=== PATIENT | female | born 1990 | race Caucasian/White ===

== ENCOUNTER 2017-07-27 16:04 | Emergency (ER) | payer MEDICAID, SELFPAY ==
[2017-07-27 16:06] VITALS: BP 134/88; PULSE 71; RESP 16; TEMP 35.9; O2SAT 100; BMI 29.5
--- NOTE | 2017-07-27 16:22 | US_ITS ---
STUDY: ABDOMINAL ULTRASOUND - RIGHT UPPER QUADRANT REASON FOR VISIT: Female, 27 years old. RUQ PAIN, nausea and vomiting TECHNIQUE: Ultrasound evaluation of the right upper quadrant was performed with real-time and static aguilar-scale imaging. TECHNICAL QUALITY: Adequate. COMPARISON: None. FINDINGS: Liver: The liver measures 14.1 cm. There is normal echogenicity of the liver. The bile ducts are within normal limits. There is hepatic color flow. The direction of portal flow is hepatopetal. There is no demonstrated mass lesion. Gallbladder: Normal distended gallbladder. The gallbladder wall measures 2 mm. There is a negative sonographic Eagle's sign. There is no pericholecystic fluid. There are no gallstones. Common Bile Duct (C.B.D.): The common bile duct measures 3.5 mm. Pancreas: Normal size of the head, body and tail of the pancreas. There is normal echogenicity of the pancreas. There is no demonstrated pancreatic mass or cyst. Right Kidney: Normal size of the right kidney. The right kidney measures 10 x 4.7 x 4 cm. Normal renal cortex. The right cortex measures 1.2 cm. There is no demonstrated renal mass or cyst. There is no right hydronephrosis. US/Gallbladder IMPRESSION: Normal right upper quadrant ultrasound examination. No evidence of cholelithiasis or biliary obstruction. Electronically Signed: Mague Pardo MD at 18:27 EDT Tel , Service support ,
[2017-07-27 16:40] LABS: Absolute Lymphocyte Count 1.07 X10^3/ul (0.83-4.51); Absolute Neutrophil Count 14.1 X10^3/uL (2.0-7.7); Basophil# 0.02 X10^3/uL; Basophil% 0.1 % (0-1); Eosinophil# 0.01 X10^3/uL; Eosinophils% 0.1 % (0-5); Hematocrit 40.7 % (37-47); Hemoglobin 13.5 g/dl (12.0-15.0); Lymphocyte # 1.07 X10^3/ul (4.0); Lymphocyte % 6.8 % (19-41); Mean Corp Hgb Conc 33.2 g/gl (32-36); Mean Corpuscular Volume 87.3 fL (81-99); Mean Platelet Vol. 10.3 fl (6.2-12.0); Monocyte# 0.59 X10^3/uL; Monocyte% 3.7 % (0-10); Neutrophil # 14.05 X10^3/uL (2.7-7.7); Neutrophil % 89.1 % (47-70); Platelet Count 243 K/mm3 (150-450); RBC Distribution Width CV 12.6 % (11.6-14.6); RBC Distribution Width SD 40.4 fl (35.1-43.9); Red Blood Count 4.66 M/mm3 (4.2-5.4); White Blood Count 15.8 K/mm3 (4.4-11.0)
[2017-07-27 16:41] LABS: POSITIVE COUNT NO; POSITIVE DIFFERENTIAL NO; POSITIVE MORPHOLOGY NO
[2017-07-27] MEDS: Morphine 4 MG/ML Syringe IV (16:49)
[2017-07-27] MEDS: 0.9% Normal Saline 1,000 ML 1000 ML IV (16:49)
[2017-07-27] MEDS: Ondansetron 4 MG/2 ML Vial IV (16:51)
[2017-07-27 17:01] LABS: AST(SGOT) 15 U/L (15-37); Alanine Aminotransfer ALT/SGPT 19 U/L (13-56); Albumin, Serum 3.7 g/dL (3.2-5.0); Alkaline Phosphatase 71 U/L (45-117); Anion Gap 10 (5-15); BUN 12 mg/dL (7-18); BUN/Creat Ratio 18.9 RATIO (10-20); Calcium,Total 8.7 mg/dL (8.5-10.1); Chloride 105 mmol/L (98-107); Creatinine, Serum 0.64 mg/dL (0.55-1.02); EST Glomerular Filtration Rate 120 mL/min (>60); Est Glom Filt Rate - Afr Amer 145 mL/min (>60); Estimated Creatinine Clearance 110.19 ml/min; Globulin 3.8 g/dL (2.2-4.2); Glucose 119 mg/dL (74-106); Lipase 104 U/L (73-393); Protein, Total 7.5 g/dL (6.4-8.2); Sodium Level 139 mmol/L (136-145)
[2017-07-27 17:04] LABS: Pregnancy, Serum, hCG Quali. NEGATIVE Negative (0-9 Nonpreg)
--- NOTE | 2017-07-27 19:01 | ED.VISSUMM ---
- ER Visit Summary Date of Service: 07/27/17 Chief Complaint: Abdominal pain nausea and vomiting History of Present Illness: The patient is a 27 F presenting for evaluation secondary to abdominal pain nausea vomiting. Patient states she had a sudden onset of epigastric abdominal pain today at 1330. It was associated with multiple episodes of nonbloody nonbilious emesis. She denies any presence of diarrhea or fevers. Patient states that she went to an outside facility emergency department, and was told that they were on bypass so she came to this emergency department. Patient denies any history of abdominal surgeries. Review of systems otherwise negative. Physical Examination: Vital signs within normal limits. Uncomfortable female not in physiologic distress. No conjunctival pallor or scleral icterus. Dry mucous membranes. Neck was supple. Heart was regular rate and rhythm. Lungs sounds clear to auscultation. Abdomen was tender in the right upper quadrant and epigastrium without guarding rebound or Eagle sign. Remainder the physical otherwise unremarkable. Test Results: CBC shows leukocytosis of 15.8, likely reactive to the patient's emesis, chemistry unremarkable, liver panel and lipase unremarkable, hCG negative. Right upper quadrant ultrasound negative. Emergency Department Course and Treatment: Patient presented for evaluation secondary nausea vomiting and abdominal pain. Likely diagnosis is abdominal pain secondary to the patient's forcible emesis, there is no evidence of Cierra-Newsome or Boerhaave syndrome. She did have some localization in her right upper quadrant there is at least some concern for the possibility of pancreatitis versus gallbladder disease. Laboratory workup was indicative only of the patient's elevated white blood cell count likely reactive to her vomiting. She was given a liter normal saline morphine Zofran repeat evaluation showed significant improvement. This point I believe patient can safely be discharged with Zofran and follow-up with her primary care physician. Disposition: Discharge Impression: 1. Gastroenteritis This note was generated with [employer] dictation software. It may contain incorrect words, spelling, and punctuation that were not noted in review of the chart prior to signing ED Disposition - Plan for ED Patient: Disposition: Home or Assisted Living Chief Complaint: Abd Pain Diagnosis: Gastroenteritis Instructions: ED Gastroenteritis Viral Prescriptions: Ondansetron [Zofran Odt] 4 mg PO Q8H PRN PRN #10 tab PRN Reason: Nausea Referrals: Tristen Cortez MD [Primary Care Provider] - As Needed
[2017-07-27 19:06] VITALS: PULSE 72; RESP 16; O2SAT 99
--- NOTE | 2017-07-27 19:06 | ED.DCSUM_ITS ---
- ER Visit Summary Date of Service: 07/27/17 Chief Complaint: Abdominal pain nausea and vomiting History of Present Illness: The patient is a 27 F presenting for evaluation secondary to abdominal pain nausea vomiting. Patient states she had a sudden onset of epigastric abdominal pain today at 1330. It was associated with multiple episodes of nonbloody nonbilious emesis. She denies any presence of diarrhea or fevers. Patient states that she went to an outside facility emergency department, and was told that they were on bypass so she came to this emergency department. Patient denies any history of abdominal surgeries. Review of systems otherwise negative. Physical Examination: Vital signs within normal limits. Uncomfortable female not in physiologic distress. No conjunctival pallor or scleral icterus. Dry mucous membranes. Neck was supple. Heart was regular rate and rhythm. Lungs sounds clear to auscultation. Abdomen was tender in the right upper quadrant and epigastrium without guarding rebound or Eagle sign. Remainder the physical otherwise unremarkable. Test Results: CBC shows leukocytosis of 15.8, likely reactive to the patient's emesis, chemistry unremarkable, liver panel and lipase unremarkable, hCG negative. Right upper quadrant ultrasound negative. Emergency Department Course and Treatment: Patient presented for evaluation secondary nausea vomiting and abdominal pain. Likely diagnosis is abdominal pain secondary to the patient's forcible emesis, there is no evidence of Cierra -Newsome or Boerhaave syndrome. She did have some localization in her right upper quadrant there is at least some concern for the possibility of pancreatitis versus gallbladder disease. Laboratory workup was indicative only of the patient's elevated white blood cell count likely reactive to her vomiting. She was given a liter normal saline morphine Zofran repeat evaluation showed significant improvement. This point I believe patient can safely be discharged with Zofran and follow-up with her primary care physician. Disposition: Discharge Impression: 1. Gastroenteritis This note was generated with [employer] dictation software. It may contain incorrect words, spelling, and punctuation that were not noted in review of the chart prior to signing ED Disposition - Plan for ED Patient: Disposition: Home or Assisted Living Chief Complaint: Abd Pain Diagnosis: Gastroenteritis Instructions: ED Gastroenteritis Viral Prescriptions: Ondansetron [Zofran Odt] 4 mg PO Q8H PRN PRN #10 tab PRN Reason: Nausea Referrals: Tristen Cortez MD [Primary Care Provider] - As Needed
== END 2017-07-27 19:32 | disposition home or self-care (01) ==
PROVIDERS: Emergency Provider Emergency Medicine; Family Provider Pediatrics; PCP Pediatrics
DX: K52.9 Noninfective gastroenteritis and colitis, unspecified (principal)
CPT/HCPCS: 76705; 80053; 83690; 84703; 85025; 96361; 96374; 96375; 99283; J7030; A4216; J2405

== ENCOUNTER → 2021-10-31 | Outpatient (CLI) | payer OTHER, SELFPAY | END | disposition home or self-care (01) | LOC: LAB 10:28 | PROVIDERS: PCP Pediatrics; Visit Provider Physician Assistant Surgical | DX: R30.9 Painful micturition, unspecified (principal) | CPT/HCPCS: 87077; 87086; 87088; 87186 ==

== ENCOUNTER 2021-11-01 18:17 | Inpatient (IN) | payer OTHER, SELFPAY ==
[2021-11-01] VITALS (7 sets, daily range): BP systolic 113–125; BP diastolic 66–88; PULSE 109–143; RESP 12–18; TEMP 36.8–37.5; O2SAT 96–98; BMI 22.8
--- NOTE | 2021-11-01 18:56 | CT_ITS ---
STUDY: CT ABDOMEN AND PELVIS WITH CONTRAST REASON FOR EXAM: Female, 31 years old. pain, fever RADIATION DOSAGE (If Supplied By Facility): CTDIvol = ( 9.86 ) mGy, DLP = ( 702.50 ) mGycm TECHNIQUE: Transaxial images were obtained from the dome of the diaphragm to the symphysis pubis without oral contrast. IV 100mL Isovue-370 was administered. Sagittal and coronal images were reconstructed. Individualized dose optimization techniques were used for this CT. COMPARISON: None. FINDINGS: The visualized lung bases are unremarkable. The visualized portions of the heart are within normal limits. Normal liver. Normal gallbladder and extrahepatic biliary system. Normal spleen. Normal pancreas. Normal bilateral adrenal glands. There is very mild swelling of the right kidney with patchy areas of diminished cortical enhancement consistent with pyelonephritis and multifocal lobar nephronia with associated inflammatory stranding in perinephric fat and trace of fluid in the right paracolic gutter. Normal left kidney. Normal visualized stomach. Normal small intestine. Normal colon. Appendix not visualized post surgically. Normal abdominal aorta. Normal inferior vena cava. Normal retroperitoneum. Incompletely distended thick-walled bladder which may be consistent with coexisting cystitis Small amount of fluid within the cul-de-sac Normal abdominal wall. Normal osseous structures. CT/Abdomen/Pelvis W IV Cont ONLY IMPRESSION: Findings consistent with acute pyelonephritis and multifocal lobar nephronia of the right kidney with possible coexisting cystitis.. Electronically Signed: Jamison Espinosa MD at 20:37 EDT ,
--- NOTE | 2021-11-01 18:57 | EKG12_ITS ---
Test Reason : GEN ILL Blood Pressure : / mmHG Vent. Rate : 120 BPM Atrial Rate : 120 BPM P-R Int : 114 ms QRS Dur : 070 ms QT Int : 286 ms P-R-T Axes : 054 075 025 degrees QTc Int : 404 ms Sinus tachycardia Otherwise normal ECG Confirmed by SOM RAMIREZ, JERRICA ([id number]), editorial cartoonist PEDRO MESSINA ([id number]) on 11/03/2021 11:02:09 AM Referred By: CORA Confirmed By:JERRICA KEARNS MD
--- NOTE | 2021-11-01 18:58 | EDS_ITS ---
HPI History of Present Illness Chief Complaint: General Illness Informant: patient and parent Narrative Narrative: This chart and dictation is done after seeing the patient with a delay due to a complete computer system downtime. This may induce details that are not perfectly consistent with my initial evaluation and memory. Patient started with dysuria frequency and urgency about 9 or 10 days prior to being able to get an appointment to be seen yesterday. She was seen. A urine was done. She was told she had white cells and she was placed on antibiotics. She has taken 2 doses of Macrobid. She thinks she kept it down but she has had nausea vomiting. She is also over the last 10 days developed flank pain mostly on the right. She has had fevers up to 103. She has diffuse abdominal pain. Nothing makes this better or worse but she has no meds to help. PFSH PFS Home Medications levonorgestrel-ethinyl estradiol 0.1 mg-20 mcg tablet (Vienva) 1 tab PO DAILY 03/18/21 [History Last Taken Unknown] nitrofurantoin monohydrate/macrocrystals 100 mg capsule 1 cap PO Q12H 7 days #14 caps 10/31/21 [Rx Last Taken Unknown] phenazopyridine 100 mg tablet (Pyridium) 100 mg PO TID PRN pain 6 doses #7 tabs 10/31/21 [Rx Last Taken Unknown] Allergy/AdvReac Type Severity Reaction Status Date / Time methylphenidate HCl Allergy Other Verified 11/01/21 18:24 [From Concerta] oxycodone Allergy Upset Verified 11/01/21 18:24 Stomach benzoyl peroxide AdvReac Rash Verified 11/01/21 18:24 Social History Smoking Status: Never smoker ROS ROS ED Constitutional Constitutional ED: Reports chills and fever(s) Eyes Eyes: Denies blurry vision ENT ENT ED: Denies rhinorrhea or sore throat Cardiovascular Cardiovascular: Denies chest pain or palpitations Respiratory/Chest Respiratory/Chest: Denies cough or dyspnea Gastrointestinal Gastrointestinal: Reports abdominal pain, nausea and vomiting; Denies constipation Genitourinary Genitourinary ED: Reports dysuria and urinary frequency Musculoskeletal Musculoskeletal: Reports back pain Integumentary Denies Abrasions or rash Neurologic Neurologic: Denies headache(s) or paresthesias Psychiatric Psychiatric: Reports anxiety Endocrine Endocrinology: Denies polydipsia or polyuria Hematologic/Lymphatic Hematologic/Lymphatic: Denies easy bleeding or easy bruising EXAM Physical Exam Const Vital Signs: 11/01/21 18:19 11/01/21 18:40 11/01/21 18:50 Temperature 98.3 F 99.5 F H Temperature Source Temporal Oral Pulse Rate 143 H Respiratory Rate 16 Respiratory Effort Normal Non-Labored Blood Pressure 125/88 H Blood Pressure Mean 100 Pulse Ox 98 Oxygen Delivery Method Room Air 11/01/21 19:21 11/01/21 20:43 Temperature Temperature Source Pulse Rate 114 H 111 H Respiratory Rate 17 18 Respiratory Effort Blood Pressure 115/75 118/66 Blood Pressure Mean 88 83 Pulse Ox 98 96 Oxygen Delivery Method Room Air Room Air Positive well nourished and well developed General Appearance ED: well developed HEENT Reports dry mucous membranes Mouth ED: Yes dry mucous membranes Mouth: dry mucous membranes Eyes EOMs intact bilaterally General Eye ED: Negative for scleral icterus Neck no lymphadenopathy Chest Wall inspection of chest normal Resp normal respiratory effort and clear to auscultation bilaterally Cardio regular rhythm Rate: tachycardic GI normal to inspection, nondistended, normoactive bowel sounds GI Narrative: mild diffuse TTP no mass. No rebound or guarding. Back/Spine Back/Spine Narrative: CVA tenderness primarily on the right. There is a slight amount on the left. General Back: CVA tenderness Extremity normal to inspection Neuro oriented x3 Sensorium / Orientation: alert Psych mental status grossly normal Skin no rashes or lesions noted MDM MDM MDM Narrative Medical decision making narrative: Patient does have elevated white count. Electrolytes show mild elevation of her creatinine over baseline. Glucose is also minimally elevated likely secondary to stress. Bilirubin has minimal elevations but overall liver function tests are relatively normal. Urine is consistent with UTI especially since she has been on antibiotics for a day already. She has cloudy urine with 10-20 white cells and leukocyte esterase. Lactate is negative. is negative. CT scan showed pyelonephritis and right-sided nephronia. I discussed the case with urology, Dr. Lyons. He stated this would be treated as Devin with admission IV antibiotics and medical admit. I discussed case with hospitalist. Lab Data Attestation: I reviewed the patient's lab results. Labs: Laboratory Results - last 24 hr 11/01/21 11/01/2122 18:48 18:57 18:57 WBC 15.6 H RBC 4.43 Hgb 13.3 Hct 39.5 MCV 89.2 MCH 30.0 MCHC 33.7 RDW Std Deviation 40.2 RDW Coeff of Viktoria 12.3 Plt Count 208 MPV 10.3 Immature Gran % (Auto) 0.900 Neut % (Auto) 89.2 H Lymph % (Auto) 2.9 L Doddridge % (Auto) 6.8 Eos % (Auto) 0.0 Baso % (Auto) 0.2 Absolute Neuts (auto) 13.9 H Absolute Lymphs (auto) 0.46 L Nucleated RBC % 0 Differential Comment SCANNED Sodium 133 L Potassium 3.5 Chloride 100 Carbon Dioxide 21.0 Anion Gap 12 BUN 16 Creatinine 1.04 H Estim Creat Clear Calc 59.69 Est GFR (MDRD) Af Amer 80 Est GFR (MDRD) Non-Af 66 BUN/Creatinine Ratio 15.4 Glucose 150 H Lactic Acid Calcium 9.3 Total Bilirubin 1.30 H AST 16 ALT 20 Alkaline Phosphatase 67 Total Protein 7.6 Albumin 2.9 L Globulin 4.7 H Albumin/Globulin Ratio 0.6 L Lipase 31 L Serum , Qual Urine Color Benita Urine Clarity Sl. Cloudy Urine pH 6.0 Ur Specific Eugene 1.015 Urine Protein 100 H Urine Glucose (UA) Normal Urine Ketones 150 A* Urine Occult Blood 150 H Urine Nitrite Negative Urine Bilirubin 1 H Urine Urobilinogen 1 H Ur Leukocyte Esterase 100 H Urine RBC 5-10 SEEN Urine WBC 10-25 SEEN Ur Squamous Epith Cells 0-5 SEEN Urine Bacteria 1+ Urine Mucus 0 SEEN 11/01/21 11/01/21 18:57 18:57 WBC RBC Hgb Hct MCV MCH MCHC RDW Std Deviation RDW Coeff of Viktoria Plt Count MPV Immature Gran % (Auto) Neut % (Auto) Lymph % (Auto) Doddridge % (Auto) Eos % (Auto) Baso % (Auto) Absolute Neuts (auto) Absolute Lymphs (auto) Nucleated RBC % Differential Comment Sodium Potassium Chloride Carbon Dioxide Anion Gap BUN Creatinine Estim Creat Clear Calc Est GFR (MDRD) Af Amer Est GFR (MDRD) Non-Af BUN/Creatinine Ratio Glucose Lactic Acid 1.5 Calcium Total Bilirubin AST ALT Alkaline Phosphatase Total Protein Albumin Globulin Albumin/Globulin Ratio Lipase Serum , Qual NEGATIVE Urine Color Urine Clarity Urine pH Ur Specific Eugene Urine Protein Urine Glucose (UA) Urine Ketones Urine Occult Blood Urine Nitrite Urine Bilirubin Urine Urobilinogen Ur Leukocyte Esterase Urine RBC Urine WBC Ur Squamous Epith Cells Urine Bacteria Urine Mucus Radiography Diagnostic Testing: Clinical Impression(s) from Imaging Studies Abdomen/Pelvis CT 11/01/21 18:56 IMPRESSION: Findings consistent with acute pyelonephritis and multifocal lobar nephronia of the right kidney with possible coexisting cystitis.. Electronically Signed: Jamison Espinosa MD at 20:37 EDT , Discharge Plan Triage Chief Complaint: General Illness ED Provider: Claudio Contreras Dx/Rx/DC Orders Clinical Impression: Pyelonephritis of right kidney, Sepsis, Acute dehydration, Intractable nausea and vomiting Prescriptions: No Action levonorgestrel-ethinyl estrad [Vienva] 0.1-20 mg-mcg tablet 1 tab PO DAILY nitrofurantoin monohyd/m-cryst 100 mg capsule 1 cap PO Q12H 7 Days Qty: 14 0RF Rx Instructions: administer with a meal/food; swallow whole; do not open, crush, dissolve , or chew phenazopyridine [Pyridium] 100 mg tablet 100 mg PO TID PRN (Reason: pain) Qty: 7 0RF Rx Instructions: administer with a full glass of water after each meal Primary Care Provider: Care Physician,No Primary Referrals: Tristen Cortez MD [NON-STAFF] - Disposition Disposition: Acute Care [facility]
[2021-11-01] MEDS: Ondansetron 4 MG/2 ML Vial IV ×2 (19:17→22:05)
[2021-11-01 19:18] LABS: Mucous, Urine 0 SEEN /hpf (<or=2+)
[2021-11-01] MEDS: Morphine 4 MG/ML Syringe IV ×2 (19:18→22:07)
[2021-11-01] MEDS: 0.9% Normal Saline 1,000 ML 1000 ML IV (19:20)
[2021-11-01 19:22] LABS: Color, Urine Amber (Yellow); Glucose, Dipstick Normal (Normal); Leukocyte Esterase-Dipstick 100 /ul (Negative); Nitrite-Dipstick Negative (Negative); Occult Blood-Urine 150 /ul (Negative); Protein-Dipstick 100 mg/dl (Negative); Specific Gravity, Urine 1.015 (1.002-1.030); Urine Clarity Sl. Cloudy (Clear); Urine Urobilinogen 1 mg/dl (Normal)
[2021-11-01 19:22] LABS: Absolute Lymphocyte Count 0.46 X10^3/uL (0.83-4.51); Absolute Neutrophil Count 13.9 X10^3/uL (2.0-7.7); Basophil# 0.03 X10^3/uL; Basophil% 0.2 % (0-1); Hematocrit 39.5 % (37-47); Hemoglobin 13.3 g/dL (12.0-15.0); Lymphocyte # 0.46 X10^3/ul (0.83-4.51); Lymphocyte % 2.9 % (19-41); Mean Corp Hgb Conc 33.7 g/dL (32-36); Mean Corpuscular Volume 89.2 fL (81-99); Mean Platelet Vol. 10.3 fl (6.2-12.0); Monocyte# 1.07 X10^3/uL; Monocyte% 6.8 % (0-10); NRBC Flagged by Analyzer 0 % (0-5); Neutrophil # 13.93 X10^3/uL (2.7-7.7); Neutrophil % 89.2 % (47-70); POSITIVE DIFFERENTIAL YES; Platelet Count 208 K/mm3 (150-450); RBC Distribution Width CV 12.3 % (11.6-14.6); RBC Distribution Width SD 40.2 fl (35.1-43.9); Red Blood Count 4.43 M/mm3 (4.2-5.4); White Blood Count 15.6 K/mm3 (4.4-11.0)
[2021-11-01 19:24] LABS: Differential Indicated SCAN CRITERIA MET
[2021-11-01 19:25] LABS: Urine Bilirubin Dipstick 1 mg/dL (Negative)
[2021-11-01 19:26] LABS: Ketone-Dipstick 150 mg/dl (Negative)
[2021-11-01 19:37] LABS: ALB/GLOB Ratio 0.6 RATIO (0.9-2.4); AST(SGOT) 16 U/L (15-37); Alanine Aminotransfer ALT/SGPT 20 U/L (13-56); Albumin, Serum 2.9 g/dL (3.2-5.0); Alkaline Phosphatase 67 U/L (45-117); Anion Gap 12 (5-15); BUN 16 mg/dL (7-18); BUN/Creat Ratio 15.4 RATIO (10-20); Calcium,Total 9.3 mg/dL (8.5-10.1); Chloride 100 mmol/L (98-107); Creatinine, Serum 1.04 mg/dL (0.55-1.02); EST Glomerular Filtration Rate 66 mL/min (>60); Est Glom Filt Rate - Afr Amer 80 mL/min (>60); Estimated Creatinine Clearance 59.69 ml/min; Globulin 4.7 g/dL (2.2-4.2); Glucose 150 mg/dL (74-106); Lipase 31 U/L (73-393); Potassium 3.5 mmol/L (3.5-5.1); Protein, Total 7.6 g/dL (6.4-8.2); Sodium Level 133 mmol/L (136-145)
[2021-11-01 19:39] LABS: Bacteria 1+ /hpf (None Seen); Red Blood Cells-Urine 5-10 SEEN /hpf (0-5); Squamous Epithelial Cells - UA 0-5 SEEN /hpf (5-10)
[2021-11-01 19:40] LABS: White Blood Cells 10-25 SEEN /hpf (0-5)
[2021-11-01 19:42] LABS: Differential Comment SCANNED; Internal QC Validated? YES +Cl - CLEAR BKGD; Pregnancy, Serum, hCG Quali. NEGATIVE Negative
[2021-11-01 19:51] LABS: Lactic Acid 1.5 mmol/L (0.4-1.9)
[2021-11-01] MEDS: Ceftriaxone 1 GM/50 ML BAG IV (20:42)
--- NOTE | 2021-11-01 22:04 | PCM.HP.STD ---
HPI - General General Date of Admission: 11/01/21 Date of Service: 11/01/21 Chief Complaint: Recent UTI Dx x 1 week, worsening, fevers, N/V/D/Chills, poor intake ability. HPI Narrative The patient is a 31 y/o F w/ PMHx: ADD, Insomnia, Cannabis use who presents to the [facility] ED on 11/01/21 with history of onset dysuria, urgency and frequency approximately 9 to 10 days prior to current presentation however patient was unable to have an appointment till the day prior with urine performed at that time noted to have white cells in it with initiation of antibiotic therapy with nitrofurantoin with 2 doses administered however patient notes feeling worse with nausea, emesis, diarrhea and fevers, unable to keep anything down with worsening primarily right flank pain and fevers at home up to 103 with diffuse abdominal discomfort prompting eventual ED evaluation. She rates her discomfort 8/10 in severity prior to recent morphine in the ED. Currently rates pain 2-3/10, worse if abdomen/flank palpated. From review of records from UC visit 10/31/21 preliminary UCx w/ GNR > 100,000. Work-up in the ED included T99.5 Max, heart rate initially 143 with most recent 111, BP 125/88, respiratory rate 16, 98% on room air, CBC with WC 15.6, hemoglobin 13.3, platelet 208 with left shift and lymphopenia, CMP with sodium 133, BUN/creatinine 16/1.04, anion gap 12 glucose 150, BUN/creatinine 16/1.04, lactic acid 1.5, T bili 1.30, hepatic profile not marked otherwise, lipase 31, serum negative, urinalysis with urine noted to be cloudy, specific gravity 1.015, protein 100, ketones 150, occult blood 150, negative nitrite, leukocyte Estrace 100, urine WBCs 10-25, urine RBCs 5-10, 1+ urine bacteria, urine culture pending per ED, blood culture pending per ED x2, CT abdomen pelvis with findings concerning for acute pyelonephritis and multifocal lobar nephronia of the right kidney with possibly coexisting cystitis. In the ED patient ministered Zofran, morphine, Rocephin and normal saline IV fluid bolus. ED discussed case with Dr. Lyons who recommended continued abx therapy only. ON LICENSE OF [facility] Medical History (Updated 11/01/21 @ 22:[address] Lydia Shay MD) ADD (attention deficit disorder) Cannabis use disorder, mild, abuse Insomnia Home Medications levonorgestrel-ethinyl estradiol 0.1 mg-20 mcg tablet (Vienva) 1 tab PO DAILY 03/18/21 [History Last Taken Unknown] nitrofurantoin monohydrate/macrocrystals 100 mg capsule 1 cap PO Q12H 7 days #14 caps 10/31/21 [Rx Last Taken Unknown] phenazopyridine 100 mg tablet (Pyridium) 100 mg PO TID PRN pain 6 doses #7 tabs 10/31/21 [Rx Last Taken Unknown] Allergy/AdvReac Type Severity Reaction Status Date / Time methylphenidate HCl Allergy Other Verified 11/01/21 18:24 [From Concerta] oxycodone Allergy Upset Verified 11/01/21 18:24 Stomach benzoyl peroxide AdvReac Rash Verified 11/01/21 18:24 Family History (Updated 11/01/21 @ 22:[address] Lydia Shay MD) Mother HLD (hyperlipidemia) GERD (gastroesophageal reflux disease) IBS (irritable bowel syndrome) other (No paternal family history including HD, DM, CA.) Surgical History (Updated 11/01/21 @ 22:[address] Lydia Shay MD) History of dental surgery S/P appendectomy Social History (Updated 11/01/21 @ 22:[address] Lydia Shay MD) household members: family Smoking Status: Never smoker alcohol intake: never substance use type: marijuana ROS ROS Narrative Admission Review of Systems: CONSTITUTIONAL: No weight loss, + fever, chills, weakness or fatigue. HEENT: Eyes: No visual loss, blurred vision, double vision or yellow sclerae. Ears, Nose, Throat: No hearing loss, sneezing, congestion, runny nose or sore throat. SKIN: No rash or itching, lesions, wounds. CARDIOVASCULAR: No chest pain, chest pressure or chest discomfort, palpitations, edema, orthopnea, syncopal events. RESPIRATORY: No shortness of breath, cough or sputum, wheezing, hemoptysis. GASTROINTESTINAL: + anorexia, nausea, vomiting, diarrhea, abdominal pain, flank pain, No melena, BRBPR. GENITOURINARY: + dysuria, frequency, urgency, flank pain, R>L. NEUROLOGICAL: No headache, dizziness, syncope, paralysis, ataxia, numbness or tingling in the extremities, focal weakness, change in bowel or bladder control, seizure. MUSCULOSKELETAL: + muscle, back pain, joint pain or stiffness. HEMATOLOGIC: No anemia, bleeding or bruising. LYMPHATICS: No enlarged nodes. No history of splenectomy. PSYCHIATRIC: + ADD. No history of depression or anxiety. ENDOCRINOLOGIC: No reports of sweating, cold or heat intolerance. No polyuria or polydipsia. ALLERGIES: No history of asthma, hives, eczema or rhinitis. Vital Signs Vital Signs Vital Signs: 11/01/21 18:19 11/01/21 18:40 11/01/21 18:50 Temperature 98.3 F 99.5 F H Temperature Source Temporal Oral Pulse Rate 143 H Respiratory Rate 16 Respiratory Effort Normal Non-Labored Blood Pressure 125/88 H Blood Pressure Mean 100 Pulse Ox 98 Oxygen Delivery Method Room Air 11/01/21 19:21 11/01/21 20:43 Temperature Temperature Source Pulse Rate 114 H 111 H Respiratory Rate 17 18 Respiratory Effort Blood Pressure 115/75 118/66 Blood Pressure Mean 88 83 Pulse Ox 98 96 Oxygen Delivery Method Room Air Room Air Weight Weight: 121 lb 4.068 oz Body Mass Index (BMI) 22.8 Physical Exam Narrative Physical Examination: General: Awake, alert, oriented x 3 and cooperative, laying in the ED bed, fatigued and ill-appearing. Skin: Normal color, normal turgor, no icterus, no cyanosis. HEENT: AT/NC, EOMI, PERRLA, dry MM, no carotid bruits or JVD noted. Lungs: Mildly diminished, greater bases, appropriate effort no rales, ronchi or wheezing. Heart: Tachycardic with regular rhythm; no gallop, rub audible. Abdomen: Soft, generalized discomfort, worse right upper and lower quadrant, bilateral lower flank discomfort, right greater than left, ND, mildly distant hyperactive BS, no HSM. Extremities: No cyanosis, clubbing, or edema. Neurological: Patient awake, alert, oriented as noted, cognitive function intact; pupils equally reactive to light and accommodation, cranial nerves II-XII grossly normal, moving all 4 extremities, no focal deficits, strength moderately global decrease secondary to acute presentation Psychiatric: Affect appears fatigued and ill-appearing, no acute evidence of depressive or anxiety feelings. Results Lab / Micro Data Result Diagrams: 11/01/21 18:57 11/01/21 18:57 Labs: Laboratory Results - last 24 hr 11/01/21 18:48: Urine Color Benita, Urine Clarity Sl. Cloudy, Urine pH 6.0, Ur Specific [place] 1.015, Urine Protein 100 H, Urine Glucose (UA) Normal, Urine Ketones 150 A*, Urine Occult Blood 150 H, Urine Nitrite Negative, Urine Bilirubin 1 H, Urine Urobilinogen 1 H, Ur Leukocyte Esterase 100 H, Urine RBC 5-10 SEEN, Urine WBC 10-25 SEEN, Ur Squamous Epith Cells 0-5 SEEN, Urine Bacteria 1+, Urine Mucus 0 SEEN 11/01/21 18:57: WBC 15.6 H, RBC 4.43, Hgb 13.3, Hct 39.5, MCV 89.2, MCH 30.0, MCHC 33.7, RDW Std Deviation 40.2, RDW Coeff of Viktoria 12.3, Plt Count 208, MPV 10.3, Immature Gran % (Auto) 0.900, Neut % (Auto) 89.2 H, Lymph % (Auto) 2.9 L, [place] % (Auto) 6.8, Eos % (Auto) 0.0, Baso % (Auto) 0.2, Absolute Neuts (auto) 13.9 H, Absolute Lymphs (auto) 0.46 L, Nucleated RBC % 0, Differential Comment SCANNED 11/01/21 18:57: Sodium 133 L, Potassium 3.5, Chloride 100, Carbon Dioxide 21.0, Anion Gap 12, BUN 16, Creatinine 1.04 H, Estim Creat Clear Calc 59.69, Est GFR (MDRD) Af Amer 80, Est GFR (MDRD) Non-Af 66, BUN/Creatinine Ratio 15.4, Glucose 150 H, Calcium 9.3, Total Bilirubin 1.30 H, AST 16, ALT 20, Alkaline Phosphatase 67, Total Protein 7.6, Albumin 2.9 L, Globulin 4.7 H, Albumin/Globulin Ratio 0.6 L, Lipase 31 L 11/01/21 18:57: Lactic Acid 1.5 11/01/21 18:57: Serum , Qual NEGATIVE Radiology Impression Abdomen/Pelvis CT 11/01/21 18:56 IMPRESSION: Findings consistent with acute pyelonephritis and multifocal lobar nephronia of the right kidney with possible coexisting cystitis.. Electronically Signed: Jamison Espinosa MD at 20:37 EDT Reading Location ID and State: [facility]– [place][note 2]6 / [place] , Service support , Assessment & Plan Assessment/Plan (1) Pyelonephritis of right kidney: PLAN: Plan The patient is a 31 y/o F w/ PMHx: ADD, Insomnia, Cannabis use who presents to the [facility] ED on 11/01/21 with history of onset dysuria, urgency and frequency approximately 9 to 10 days prior to current presentation however patient was unable to have an appointment till the day prior with urine performed at that time noted to have white cells in it with initiation of antibiotic therapy with nitrofurantoin with 2 doses administered however patient notes feeling worse with nausea, emesis, diarrhea and fevers, unable to keep anything down with worsening primarily right flank pain and fevers at home up to 103 with diffuse abdominal discomfort prompting eventual ED evaluation. #1. Acute pyelonephritis and multifocal lobar nephronia of the right kidney: Will admit to [facility], continue aggressive hydration, UA upon ED evaluation remarkable, pending UCx from current presentation as well as Bld Cx x 2, recent UC evaluation with preliminary UCx GNR >100,000, monitor I/Os, continue IV Rocephin w/ transition as able pending sensitivities and speciation. Bld cx x 2 obtained in the ED. Will hold on Urology consultation pending re-assessment and if clinically worsens low threshold to involve given ED discussion recommended abx therapy only, non-surgical. #2. Hyperglycemia: Possibly stress response, admission glucose 150, hemoglobin A1c requested to be cautious. #3. ADD, insomnia: Not on any chronic regimen, previously noted usage of Concerta currently listed as an allergy secondary to associated seizures per patient report. She reports using cannabis to help her sleep. Encourage follow-up with her primary care physician. #4. Cannabis use: Patient notes that she uses this for insomnia. Recommended follow-up with primary care physician as certainly alternate regimens that could be used for insomnia. #5 DVT prophylaxis: Low risk, encourage ambulation. Charges/Coding Visit Charges Inpatient E&M: 55167 Init Hosp L3
[2021-11-02] VITALS (8 sets, daily range): BP systolic 104–135; BP diastolic 62–84; PULSE 106–128; RESP 16–18; TEMP 37.4–39.3; O2SAT 95–100; BMI 23.4
[2021-11-02] MEDS: Acetaminophen 325 MG Tablet 650 MG PO ×4 (00:37→16:28)
[2021-11-02] MEDS: oxyCODONE 5 MG Tablet PO ×3 (00:37→15:35)
[2021-11-02] MEDS: 0.9% Normal Saline 1,000 ML 999 ML IV (00:38)
[2021-11-02] MEDS: 0.9% Saline Lock 10 ML Syringe IV (00:50)
[2021-11-02] MEDS: 0.9% Normal Saline 1,000 ML 125 ML IV ×3 (01:58→23:49)
[2021-11-02 04:41] LABS: Absolute Lymphocyte Count 1.14 X10^3/uL (0.83-4.51); Absolute Neutrophil Count 12.9 X10^3/uL (2.0-7.7); Basophil# 0.02 X10^3/uL; Basophil% 0.1 % (0-1); Hematocrit 40.4 % (37-47); Hemoglobin 12.8 g/dL (12.0-15.0); Lymphocyte # 1.14 X10^3/ul (0.83-4.51); Lymphocyte % 7.5 % (19-41); Mean Corp Hgb Conc 31.7 g/dL (32-36); Mean Corpuscular Volume 94.8 fL (81-99); Mean Platelet Vol. 10.2 fl (6.2-12.0); Monocyte# 0.95 X10^3/uL; Monocyte% 6.2 % (0-10); NRBC Flagged by Analyzer 0 % (0-5); Neutrophil # 12.87 X10^3/uL (2.7-7.7); Neutrophil % 84.5 % (47-70); Platelet Count 197 K/mm3 (150-450); RBC Distribution Width CV 12.4 % (11.6-14.6); RBC Distribution Width SD 42.8 fl (35.1-43.9); Red Blood Count 4.26 M/mm3 (4.2-5.4); White Blood Count 15.2 K/mm3 (4.4-11.0)
[2021-11-02 05:09] LABS: ALB/GLOB Ratio 0.6 RATIO (0.9-2.4); AST(SGOT) 15 U/L (15-37); Alanine Aminotransfer ALT/SGPT 20 U/L (13-56); Albumin, Serum 2.7 g/dL (3.2-5.0); Alkaline Phosphatase 63 U/L (45-117); Anion Gap 10 (5-15); BUN 13 mg/dL (7-18); BUN/Creat Ratio 12.9 RATIO (10-20); Calcium,Total 8.7 mg/dL (8.5-10.1); Chloride 104 mmol/L (98-107); Creatinine, Serum 1.01 mg/dL (0.55-1.02); EST Glomerular Filtration Rate 68 mL/min (>60); Est Glom Filt Rate - Afr Amer 83 mL/min (>60); Estimated Creatinine Clearance 61.46 ml/min; Globulin 4.8 g/dL (2.2-4.2); Glucose 114 mg/dL (74-106); Potassium 3.6 mmol/L (3.5-5.1); Protein, Total 7.5 g/dL (6.4-8.2); Sodium Level 134 mmol/L (136-145)
[2021-11-02 08:27] LABS: Hemoglobin A1c 4.9 % (3.8-5.6)
--- NOTE | 2021-11-02 10:58 | PN.HOSP_ITS ---
Subjective Subjective Patient states she feels much better today. Nausea has resolved but p.o. intake is poor secondary to sore throat related to vomiting she believes. She is willing to try some Chloraseptic to see if this helps soothe her throat so she is able to eat and drink better. Her pain is much better. Still awaiting input from urology. Objective Data Objective Data Vital Signs: Vital Signs Temp Pulse Resp BP Pulse Ox O2 Del Method 99.3 F H 120 H 16 135/71 H 98 Room Air 11/02/21 06:00 11/02/21 06:00 11/02/21 06:00 11/02/21 06:00 11/02/21 08:59 11/02/21 08:59 Oxygen Delivery Method Room Air Weight: 56.274 kg Body Mass Index (BMI) 23.4 Intake & Output: Intake and Output for Last 24 Hours 10/31/21 11/01/21 11/02/21 23:59 23:59 23:59 Intake Total 1050 / 1050 1000 / 1000 Output Total 300 / 300 Balance 1050 / 1050 700 / 700 Lab / Micro Data Result Diagrams: 11/02/21 04:25 11/02/21 04:25 Labs: Laboratory Results - last 24 hr 11/01/21 18:48: Urine Color Benita, Urine Clarity Sl. Cloudy, Urine pH 6.0, Ur Specific [place] 1.015, Urine Protein 100 H, Urine Glucose (UA) Normal, Urine Ketones 150 A*, Urine Occult Blood 150 H, Urine Nitrite Negative, Urine Bilirubin 1 H, Urine Urobilinogen 1 H, Ur Leukocyte Esterase 100 H, Urine RBC 5- 10 SEEN, Urine WBC 10-25 SEEN, Ur Squamous Epith Cells 0-5 SEEN, Urine Bacteria 1+, Urine Mucus 0 SEEN 11/01/21 18:57: WBC 15.6 H, RBC 4.43, Hgb 13.3, Hct 39.5, MCV 89.2, MCH 30.0, MCHC 33.7, RDW Std Deviation 40.2, RDW Coeff of Viktoria 12.3, Plt Count 208, MPV 10.3, Immature Gran % (Auto) 0.900, Neut % (Auto) 89.2 H, Lymph % (Auto) 2.9 L, [place] % (Auto) 6.8, Eos % (Auto) 0.0, Baso % (Auto) 0.2, Absolute Neuts (auto) 13.9 H, Absolute Lymphs (auto) 0.46 L, Nucleated RBC % 0, Differential Comment SCANNED 11/01/21 18:57: Sodium 133 L, Potassium 3.5, Chloride 100, Carbon Dioxide 21.0, Anion Gap 12, BUN 16, Creatinine 1.04 H, Estim Creat Clear Calc 59.69, Est GFR (MDRD) Af Amer 80, Est GFR (MDRD) Non-Af 66, BUN/Creatinine Ratio 15.4, Glucose 150 H, Calcium 9.3, Total Bilirubin 1.30 H, AST 16, ALT 20, Alkaline Phosphatase 67, Total Protein 7.6, Albumin 2.9 L, Globulin 4.7 H, Albumin/Globulin Ratio 0.6 L, Lipase 31 L 11/01/21 18:57: Lactic Acid 1.5 11/01/21 18:57: Serum , Qual NEGATIVE 11/02/21 04:25: WBC 15.2 H, RBC 4.26, Hgb 12.8, Hct 40.4, MCV 94.8 D, MCH 30.0, MCHC 31.7 L D, RDW Std Deviation 42.8, RDW Coeff of Viktoria 12.4, Plt Count 197, MPV 10.2, Immature Gran % (Auto) 1.700 H, Neut % (Auto) 84.5 H, Lymph % (Auto) 7.5 L , [place] % (Auto) 6.2, Eos % (Auto) 0.0, Baso % (Auto) 0.1, Absolute Neuts (auto) 12.9 H, Absolute Lymphs (auto) 1.14, Nucleated RBC % 0 11/02/21 04:25: Sodium 134 L, Potassium 3.6, Chloride 104, Carbon Dioxide 20.0 L , Anion Gap 10, BUN 13, Creatinine 1.01, Estim Creat Clear Calc 61.46, Est GFR (MDRD) Af Amer 83, Est GFR (MDRD) Non-Af 68, BUN/Creatinine Ratio 12.9, Glucose 114 H, Calcium 8.7, Total Bilirubin 0.70, AST 15, ALT 20, Alkaline Phosphatase 63, Total Protein 7.5, Albumin 2.7 L, Globulin 4.8 H, Albumin/Globulin Ratio 0.6 L 11/02/21 04:25: Hemoglobin A1c 4.9 Micro: Microbiology 11/01/21 18:48 Urine, Clean Catch Urine Culture - Preliminary Culture exhibits no growth. Radiography Diagnostic Testing: Radiology Impression Abdomen/Pelvis CT 11/01/21 18:56 IMPRESSION: Findings consistent with acute pyelonephritis and multifocal lobar nephronia of the right kidney with possible coexisting cystitis.. Electronically Signed: Jamison Espinosa MD at 20:37 EDT , Physical Exam Const alert, oriented x3, no apparent distress, average body habitus, healthy appearing and well nourished Constitutional Narrative: Young white female sitting up in bed, appears comfortable nontoxic HEENT head/scalp atraumatic, moist oral mucous membranes and oropharynx normal HEENT Narrative: Dentition is good, Mallampati is 2, no thrush Resp normal respiratory effort, no retractions, no use of accessory muscles and clear to auscultation bilaterally Auscultation: Negative for crackles, rales, rhonchi or wheezes Cardio regular rate, regular rhythm, S1 normal heart sound, S2 normal heart sound, no murmurs, no rub, no gallops, no clicks and no JVD GI normal to inspection, nondistended, normoactive bowel sounds, soft to palpation, non-tender and non-distended GI Narrative: Currently without tenderness in the right flank however patient states she just was medicated Extremity no clubbing, cyanosis or edema Extremity Narrative: Pedal pulses 2+ Neuro oriented x3, CN's II-XII intact bilaterally, moves all extremities, no focal motor deficits and no sensory deficits noted Speech: speech normal Motor Exam: strength 5/5 throughout Psych affect normal Assessment & Plan Assessment/Plan (1) Pyelonephritis of right kidney: (2) Cystitis: (3) Acute dehydration: (4) Intractable nausea and vomiting: PLAN: Plan Acute pyelonephritis/multifocal lobar nephronia of the right kidney/UTI -Patient did have an outpatient culture on 10/31/2021 with E. coli--> had 5 to 6 days of symptoms prior to initiating treatment -Fairly sensitive organism with resistance only to ampicillin and Bactrim -Had only 2 doses of Macrobid prior to presentation -Much improved today -Continue ceftriaxone with plans to transition to oral antibiotics at discharge--> will treat for total of 14 days -Urology consult is pending -Patient DID NOT MEET SEPSIS criteria on admission as she had no endorgan damage related to her acute infection -Presented with fever, leukocytosis, and tachycardia but no signs of endorgan dysfunction Nausea and vomiting -Much improved -Continue as needed antiemetics -Continue IV fluids as patient appeared mildly dehydrated upon presentation until p.o. intake is adequate Hyperglycemia -Suspect reactive -Hemoglobin A1c this morning was 4.9 ADD/insomnia -Patient is not currently on a regimen -Outpatient follow-up Marijuana use -Patient uses for insomnia -Recommend outpatient follow-up DVT prophylaxis -Low risk -Early ambulation protocol CODE STATUS -Full code Charges/Coding Visit Charges Inpatient E&M: 61799 Subs Hosp L2
--- NOTE | 2021-11-02 11:20 | CASEMGMT ---
RN JONATHON Face to Face with patient for initial transition planning/care coordination assessment. RN CM introduced self and role at [facility]. Patient lying in bed, alert and oriented, mother at bedside. Patient willing to participate in assessment and is able to answer all questions appropriately. Care providers, pharmacy, and demographics verified. Patient wishes to discharge home, denies need for home health at this time. Patient states she has no further needs or concerns at this time. CM to follow for discharge planning needs that may arise. PCP: Patient has appt with [facility] on 11/04/21 Specialists: none Preferred Pharmacy: [facility] Insurance: MMO Prescription Benefit: yes Living Will/HPOA: none LNOK: parents Living Arrangements: Patient lives with parents in a 2 story home. Patient is independent and able to ambulate stairs. Transportation: self, parents DME/HHC: Patient denies DME in the home. No previous HHC Disposition Plan: Patient to discharge home with family support and follow-up plans in place. Tawanna SEGAL, RN, CM
[2021-11-02] MEDS: LEVONORGESTREL/ETHIN.ESTRADIOL 1 EACH TABLET PO (11:32)
[2021-11-02] MEDS: Mag Hydrox/Al Hydrox/Simeth 30 ML UDC PO (11:59)
--- NOTE | 2021-11-02 13:55 | CHAPLAIN ---
Type of Pastoral Visit _x__ Initial Visit ___ Follow-up Visit ___ On-call Visit ___ General Patient Visit ___ Spiritual Assessment ___ Family Conference ___ Bereavement ___ Rapid Response ___ Code Blue ___ Other (describe below) Pastoral Care Referral From ___ Patient _x__ Family ___ Nurse ___ Physician ___ Forming Machine Upkeep Mechanic Helper ___ Stock House Worker ___ Other (describe below) Sacrament/Intervention _x__ Active listening ___ Anointing ___ Yazidism ___ Bereavement ___ Communion ___ Mulu exploration ___ ___ Life review ___ Prayer ___ Reconciliation ___ Sacrament of Sick ___ Supportive presence ___ Wedding ___ Other (describe below) Pastoral Comments patient is an acquaintance and is offered support; pt and SO are in the room; pt gives description of her health need and states that otherwise she is doing better than before; no other needs
--- NOTE | 2021-11-02 16:11 | CON.PCM.UR_ITS ---
Assessment & Plan Assessment/Plan (1) Cystitis: (2) Pyelonephritis of right kidney: PLAN: Continue with IV antibiotics we will monitor may consider reimaging if she does not improve await urine culture results call me with questions. 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 She is on appropriate broad-spectrum antibiotics at this point I would recommend we continue with that await cultures and sensitivities and certainly we can narrow the antibiotics based on the cultu res and sensitivities. She still having occasional spikes in fever and we will have to monitor her. I told her in the long run if several days from now if she still continues to fail to progress and get better then reimaging would be appropriate we will continue to monitor her with you call me with any questions. [facility] Medical History (Updated 11/02/21 @ 11:[address] Maci Day, DO) ADD (attention deficit disorder) Anxiety Cannabis use disorder, mild, abuse Depression Insomnia Home Medications levonorgestrel-ethinyl estradiol 0.1 mg-20 mcg tablet (Vienva) 1 tab PO DAILY 03/18/21 [History Last Taken Unknown] nitrofurantoin monohydrate/macrocrystals 100 mg capsule 1 cap PO Q12H 7 days #14 caps 10/31/21 [Rx Last Taken Unknown] phenazopyridine 100 mg tablet (Pyridium) 100 mg PO TID PRN pain 6 doses #7 tabs 10/31/21 [Rx Last Taken Unknown] Allergy/AdvReac Type Severity Reaction Status Date / Time methylphenidate HCl Allergy Other Verified 11/02/21 00:17 [From Concerta] oxycodone Allergy Upset Verified 11/01/21 18:24 Stomach benzoyl peroxide AdvReac Swelling Verified 11/02/21 00:17 Family History (Updated 11/01/21 @ 22:[address] Lydia Shay MD) Mother HLD (hyperlipidemia) GERD (gastroesophageal reflux disease) IBS (irritable bowel syndrome) Family History other Surgical History (Updated 11/01/21 @ 22:[address] Lydia Shay MD) History of dental surgery S/P appendectomy Social History (Updated 11/01/21 @ 22:[address] Lydia Shay MD) household members: family Smoking Status: Never smoker alcohol intake: never substance use type: marijuana ROS ROS Narrative Spiking high fevers Constitutional Constitutional: Reports systems reviewed and no addt'l complaints, except as documented and body ache(s) Genitourinary Genitourinary: Reports systems reviewed and no addt'l complaints, except as documented Physical Exam Const alert and oriented x3 General Appearance: cooperative HEENT normocephalic and head/scalp atraumatic Eyes PERRL and EOMs intact bilaterally Neck supple, no JVD and no carotid bruits Resp normal respiratory effort, normal air movement and clear to auscultation bilaterally Cardio regular rate and no murmurs GI normal to inspection, nondistended, normoactive bowel sounds and soft to palpation Extremity normal capillary refill General Extremity: no tenderness to palpation of joints or extremities; Negative for edema Skin no rashes or lesions noted and no wounds General Skin Exam: no breakdown Neuro CN's II-XII intact bilaterally Psych affect normal Appearance: appropriate Medical Records Data Attestation: I reviewed the patient's medical records Lab / Micro Data Attestation: I reviewed the patient's lab results. Result Diagrams: 11/02/21 04:25 11/02/21 04:25 Labs: Laboratory Results - last 24 hr 11/01/21 18:48: Urine Color Benita, Urine Clarity Sl. Cloudy, Urine pH 6.0, Ur Specific [place] 1.015, Urine Protein 100 H, Urine Glucose (UA) Normal, Urine Ketones 150 A*, Urine Occult Blood 150 H, Urine Nitrite Negative, Urine Bilirubin 1 H, Urine Urobilinogen 1 H, Ur Leukocyte Esterase 100 H, Urine RBC 5- 10 SEEN, Urine WBC 10-25 SEEN, Ur Squamous Epith Cells 0-5 SEEN, Urine Bacteria 1+, Urine Mucus 0 SEEN 11/01/21 18:57: WBC 15.6 H, RBC 4.43, Hgb 13.3, Hct 39.5, MCV 89.2, MCH 30.0, MCHC 33.7, RDW Std Deviation 40.2, RDW Coeff of Viktoria 12.3, Plt Count 208, MPV 10.3, Immature Gran % (Auto) 0.900, Neut % (Auto) 89.2 H, Lymph % (Auto) 2.9 L, [place] % (Auto) 6.8, Eos % (Auto) 0.0, Baso % (Auto) 0.2, Absolute Neuts (auto) 13.9 H, Absolute Lymphs (auto) 0.46 L, Nucleated RBC % 0, Differential Comment SCANNED 11/01/21 18:57: Sodium 133 L, Potassium 3.5, Chloride 100, Carbon Dioxide 21.0, Anion Gap 12, BUN 16, Creatinine 1.04 H, Estim Creat Clear Calc 59.69, Est GFR (MDRD) Af Amer 80, Est GFR (MDRD) Non-Af 66, BUN/Creatinine Ratio 15.4, Glucose 150 H, Calcium 9.3, Total Bilirubin 1.30 H, AST 16, ALT 20, Alkaline Phosphatase 67, Total Protein 7.6, Albumin 2.9 L, Globulin 4.7 H, Albumin/Globulin Ratio 0.6 L, Lipase 31 L 11/01/21 18:57: Lactic Acid 1.5 11/01/21 18:57: Serum , Qual NEGATIVE 11/02/21 04:25: WBC 15.2 H, RBC 4.26, Hgb 12.8, Hct 40.4, MCV 94.8 D, MCH 30.0, MCHC 31.7 L D, RDW Std Deviation 42.8, RDW Coeff of Viktoria 12.4, Plt Count 197, MPV 10.2, Immature Gran % (Auto) 1.700 H, Neut % (Auto) 84.5 H, Lymph % (Auto) 7.5 L , Stevens % (Auto) 6.2, Eos % (Auto) 0.0, Baso % (Auto) 0.1, Absolute Neuts (auto) 12.9 H, Absolute Lymphs (auto) 1.14, Nucleated RBC % 0 11/02/21 04:25: Sodium 134 L, Potassium 3.6, Chloride 104, Carbon Dioxide 20.0 L , Anion Gap 10, BUN 13, Creatinine 1.01, Estim Creat Clear Calc 61.46, Est GFR (MDRD) Af Amer 83, Est GFR (MDRD) Non-Af 68, BUN/Creatinine Ratio 12.9, Glucose 114 H, Calcium 8.7, Total Bilirubin 0.70, AST 15, ALT 20, Alkaline Phosphatase 63, Total Protein 7.5, Albumin 2.7 L, Globulin 4.8 H, Albumin/Globulin Ratio 0.6 L 11/02/21 04:25: Hemoglobin A1c 4.9 Micro: Microbiology 11/01/21 18:48 Urine, Clean Catch Urine Culture - Preliminary Culture exhibits no growth. Radiology Impression Abdomen/Pelvis CT 11/01/21 18:56 IMPRESSION: Findings consistent with acute pyelonephritis and multifocal lobar nephronia of the right kidney with possible coexisting cystitis.. Electronically Signed: Jamison Espinosa MD at 20:37 EDT ,
[2021-11-02] MEDS: Ceftriaxone 1 GM/50 ML BAG IV (21:33)
[2021-11-02] MEDS: Ensure Clear 120 ML Liquid PO (21:38)
[2021-11-03] VITALS (7 sets, daily range): BP systolic 98–127; BP diastolic 64–83; PULSE 97–127; RESP 16–18; TEMP 36.8–38.6; O2SAT 94–100
[2021-11-03] MEDS: Acetaminophen 325 MG Tablet 650 MG PO ×3 (01:27→20:16)
[2021-11-03] MEDS: oxyCODONE 5 MG Tablet PO (01:27)
[2021-11-03] MEDS: Loperamide 2 MG Capsule PO ×2 (02:18→09:47)
[2021-11-03 05:32] LABS: Absolute Lymphocyte Count 0.72 X10^3/uL (0.83-4.51); Absolute Neutrophil Count 6.4 X10^3/uL (2.0-7.7); Basophil# 0.03 X10^3/uL; Basophil% 0.4 % (0-1); Hemoglobin 11.5 g/dL (12.0-15.0); Lymphocyte # 0.72 X10^3/ul (0.83-4.51); Lymphocyte % 9.2 % (19-41); Mean Corp Hgb Conc 31.9 g/dL (32-36); Mean Corpuscular Hgb 29.7 pg (27.0-32.0); Mean Platelet Vol. 10.6 fl (6.2-12.0); Monocyte# 0.67 X10^3/uL; Monocyte% 8.5 % (0-10); NRBC Flagged by Analyzer 0 % (0-5); Neutrophil # 6.37 X10^3/uL (2.7-7.7); Neutrophil % 81.3 % (47-70); Platelet Count 175 K/mm3 (150-450); RBC Distribution Width CV 12.7 % (11.6-14.6); RBC Distribution Width SD 43.5 fl (35.1-43.9); Red Blood Count 3.87 M/mm3 (4.2-5.4); White Blood Count 7.8 K/mm3 (4.4-11.0)
[2021-11-03 05:55] LABS: Anion Gap 8 (5-15); BUN 10 mg/dL (7-18); BUN/Creat Ratio 13.1 RATIO (10-20); Calcium,Total 8.1 mg/dL (8.5-10.1); Chloride 105 mmol/L (98-107); Creatinine, Serum 0.76 mg/dL (0.55-1.02); EST Glomerular Filtration Rate 94 mL/min (>60); Est Glom Filt Rate - Afr Amer 114 mL/min (>60); Estimated Creatinine Clearance 81.68 ml/min; Glucose 122 mg/dL (74-106); Potassium 3.7 mmol/L (3.5-5.1); Sodium Level 136 mmol/L (136-145)
--- NOTE | 2021-11-03 07:30 | CON.PCM.UR_ITS ---
HPI Consult Data Date of Consult: 11/03/21 HPI Narrative Reason for Consultation: Patient seen in rounds today, she continues to spike fevers, on exam today. HPI Narrative: Patient continues to spike fevers today she has pyelonephritis of the right kidney we discussed the possibility of this becoming worse such as developing an abscess etc. on exam other abdomen abdomen soft and benign right back is soft and benign I do not appreciate any masses. She does have E. coli infection pansensitive continue to spike fevers continue broad-spectrum antibiotics I think we can probably do an ultrasound of her kidney to look at her kidney make sure there is no developing abscess. Probably would recommend we do the ultrasound tomorrow if she continues to spike fevers. [facility] Medical History (Updated 11/02/21 @ 11:[address] Maci Day DO) ADD (attention deficit disorder) Anxiety Cannabis use disorder, mild, abuse Depression Insomnia Home Medications levonorgestrel-ethinyl estradiol 0.1 mg-20 mcg tablet (Vienva) 1 tab PO DAILY 03/18/21 [History Last Taken Unknown] nitrofurantoin monohydrate/macrocrystals 100 mg capsule 1 cap PO Q12H 7 days #14 caps 10/31/21 [Rx Last Taken Unknown] phenazopyridine 100 mg tablet (Pyridium) 100 mg PO TID PRN pain 6 doses #7 tabs 10/31/21 [Rx Last Taken Unknown] Allergy/AdvReac Type Severity Reaction Status Date / Time methylphenidate HCl Allergy Other Verified 11/02/21 00:17 [From Concerta] oxycodone Allergy Upset Verified 11/01/21 18:24 Stomach benzoyl peroxide AdvReac Swelling Verified 11/02/21 00:17 Family History (Updated 11/01/21 @ 22:[address] Lydia Shay MD) Mother HLD (hyperlipidemia) GERD (gastroesophageal reflux disease) IBS (irritable bowel syndrome) Family History other Surgical History (Updated 11/01/21 @ 22:[address] Lydia Shay MD) History of dental surgery S/P appendectomy Social History (Updated 11/01/21 @ 22:[address] Lydia Shay MD) household members: family Smoking Status: Never smoker alcohol intake: never substance use type: marijuana Lab / Micro Data Result Diagrams: 11/03/21 04:34 11/03/21 04:34 Labs: Laboratory Results - last 24 hr 11/01/21 18:48: Urine Color Benita, Urine Clarity Sl. Cloudy, Urine pH 6.0, Ur Specific [place] 1.015, Urine Protein 100 H, Urine Glucose (UA) Normal, Urine Ketones 150 A*, Urine Occult Blood 150 H, Urine Nitrite Negative, Urine Bilirubin 1 H, Urine Urobilinogen 1 H, Ur Leukocyte Esterase 100 H, Urine RBC 5- 10 SEEN, Urine WBC 10-25 SEEN, Ur Squamous Epith Cells 0-5 SEEN, Urine Bacteria 1+, Urine Mucus 0 SEEN 11/02/21 04:25: Hemoglobin A1c 4.9 11/03/21 04:34: WBC 7.8, RBC 3.87 L, Hgb 11.5 L, Hct 36.0 L, MCV 93.0, MCH 29.7, MCHC 31.9 L, RDW Std Deviation 43.5, RDW Coeff of Viktoria 12.7, Plt Count 175, MPV 10.6, Immature Gran % (Auto) 0.600, Neut % (Auto) 81.3 H, Lymph % (Auto) 9.2 L, [place] % (Auto) 8.5, Eos % (Auto) 0.0, Baso % (Auto) 0.4, Absolute Neuts (auto) 6.4, Absolute Lymphs (auto) 0.72 L, Nucleated RBC % 0 11/03/21 04:34: Sodium 136, Potassium 3.7, Chloride 105, Carbon Dioxide 23.0, Anion Gap 8, BUN 10, Creatinine 0.76, Estim Creat Clear Calc 81.68, Est GFR (MDRD) Af Amer 114, Est GFR (MDRD) Non-Af 94, BUN/Creatinine Ratio 13.1, Glucose 122 H, Calcium 8.1 L Micro: Microbiology 11/01/21 18:48 Urine, Clean Catch Urine Culture - 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
[2021-11-03] MEDS: 0.9% Normal Saline 1,000 ML 125 ML IV ×2 (07:57→17:42)
[2021-11-03] MEDS: LEVONORGESTREL/ETHIN.ESTRADIOL 1 EACH TABLET PO (09:47)
[2021-11-03] MEDS: 0.9% Saline Lock 10 ML Syringe IV (11:33)
[2021-11-03] MEDS: Menthol/Lanolin/Calamine/Znox 113 GM Tube 1 APPLIC TOPICAL (14:08)
--- NOTE | 2021-11-03 14:16 | PN.HOSP_ITS ---
Subjective Subjective Pain is much improved, no further nausea and vomiting. Patient continues to have fevers through the night with T-max in the last 24 hours being 102.8 yesterday afternoon. Was afebrile this morning but remains slightly tachycardic. She states she has to make it to a doctor's appointment she has tomorrow afternoon or she will get fired from her job. Objective Data Objective Data Vital Signs: Vital Signs Temp Pulse Resp BP Pulse Ox O2 Del Method 99.9 F H 127 H 18 121/80 H 98 Room Air 11/03/21 14:05 11/03/21 14:05 11/03/21 14:05 11/03/21 14:05 11/03/21 14:05 11/03/21 14:05 Oxygen Delivery Method Room Air Weight: 56.274 kg Body Mass Index (BMI) 23.4 Intake & Output: Intake and Output for Last 24 Hours 11/01/21 11/02/21 11/03/21 23:59 23:59 23:59 Intake Total 1050 / 1050 4302.25 / 4302.25 1131.25 / 1131.25 Output Total 300 / 300 Balance 1050 / 1050 4002.25 / 4002.25 1131.25 / 1131.25 Lab / Micro Data Result Diagrams: 11/03/21 04:34 11/03/21 04:34 Labs: Laboratory Results - last 24 hr 11/01/21 18:48: Urine Color Benita, Urine Clarity Sl. Cloudy, Urine pH 6.0, Ur Specific [place] 1.015, Urine Protein 100 H, Urine Glucose (UA) Normal, Urine Ketones 150 A*, Urine Occult Blood 150 H, Urine Nitrite Negative, Urine Bilirubi n 1 H, Urine Urobilinogen 1 H, Ur Leukocyte Esterase 100 H, Urine RBC 5-10 SEEN, Urine WBC 10-25 SEEN, Ur Squamous Epith Cells 0-5 SEEN, Urine Bacteria 1+, Urine Mucus 0 SEEN 11/03/21 04:34: WBC 7.8, RBC 3.87 L, Hgb 11.5 L, Hct 36.0 L, MCV 93.0, MCH 29.7, MCHC 31.9 L, RDW Std Deviation 43.5, RDW Coeff of Viktoria 12.7, Plt Count 175, MPV 10.6, Immature Gran % (Auto) 0.600, Neut % (Auto) 81.3 H, Lymph % (Auto) 9.2 L, [place] % (Auto) 8.5, Eos % (Auto) 0.0, Baso % (Auto) 0.4, Absolute Neuts (auto) 6.4, Absolute Lymphs (auto) 0.72 L, Nucleated RBC % 0 11/03/21 04:34: Sodium 136, Potassium 3.7, Chloride 105, Carbon Dioxide 23.0, Anion Gap 8, BUN 10, Creatinine 0.76, Estim Creat Clear Calc 81.68, Est GFR (MDRD) Af Amer 114, Est GFR (MDRD) Non-Af 94, BUN/Creatinine Ratio 13.1, Glucose 122 H, Calcium 8.1 L Micro: Microbiology 11/01/21 18:48 Urine, Clean Catch Urine Culture - Final GNR 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 Physical Exam Const alert, oriented x3, no apparent distress, average body habitus, healthy appearing and well nourished Constitutional Narrative: Young white female sitting up on the edge of the bed, nursing at the bedside, patient appears comfortable and nontoxic HEENT head/scalp atraumatic, moist oral mucous membranes and oropharynx normal Resp normal respiratory effort, no retractions, no use of accessory muscles and clear to auscultation bilaterally Auscultation: Negative for crackles, rales, rhonchi or wheezes Cardio regular rate, regular rhythm, S1 normal heart sound, S2 normal heart sound, no murmurs, no rub, no gallops, no clicks and no JVD GI normal to inspection, nondistended, normoactive bowel sounds, soft to palpation, non-tender and non-distended Extremity no clubbing, cyanosis or edema Extremity Narrative: Pedal pulses 2+ Neuro oriented x3, CN's II-XII intact bilaterally, moves all extremities, no focal motor deficits and no sensory deficits noted Speech: speech normal Motor Exam: strength 5/5 throughout Psych affect normal Assessment & Plan Assessment/Plan (1) Pyelonephritis of right kidney: (2) Cystitis: (3) Acute dehydration: (4) Intractable nausea and vomiting: PLAN: Plan Acute pyelonephritis/multifocal lobar nephronia of the right kidney/UTI -Patient did have an outpatient culture on 10/31/2021 with E. coli--> had 5 to 6 days of symptoms prior to initiating treatment -Fairly sensitive organism with resistance only to ampicillin and Bactrim -Had only 2 doses of Macrobid prior to presentation -Patient clinically reports that she is improved and feeling much better however she still having fevers and is mildly tachycardic -Continue ceftriaxone with plans to transition to oral antibiotics at discharge--> will treat for total of 14 days -Urology has evaluated the patient -Urology recommends a ultrasound tomorrow if she continues to spike fevers -Patient DID NOT MEET SEPSIS criteria on admission as she had no endorgan damage related to her acute infection -Presented with fever, leukocytosis, and tachycardia but no signs of endorgan dysfunction Nausea and vomiting -Resolved Hyperglycemia -Suspect reactive -Hemoglobin A1c this morning was 4.9 ADD/insomnia -Patient is not currently on a regimen -Outpatient follow-up Marijuana use -Patient uses for insomnia -Recommend outpatient follow-up DVT prophylaxis -Low risk -Early ambulation protocol CODE STATUS -Full code Charges/Coding Visit Charges Inpatient E&M: 72681 Subs Hosp L2
[2021-11-03] MEDS: Ceftriaxone 1 GM/50 ML BAG IV (21:55)
[2021-11-04] MEDS: 0.9% Normal Saline 1,000 ML 125 ML IV (01:56)
[2021-11-04 03:37] VITALS: BP 120/78; PULSE 118; RESP 18; TEMP 38.8; O2SAT 95
[2021-11-04] MEDS: Acetaminophen 325 MG Tablet 650 MG PO (03:42)
--- NOTE | 2021-11-04 03:58 | PCM.HOSP.N ---
Hospitalist Note Patient with persistent fevers despite treatment. CBC most recently with no marked WBC elevation or L shift with noted lymphopenia. Patient now with onset notable cough, nonproductive. Will obtain COVID PCR to be cautious.
[2021-11-04 04:49] LABS: Absolute Lymphocyte Count 0.77 X10^3/uL (0.83-4.51); Absolute Neutrophil Count 4.4 X10^3/uL (2.0-7.7); Basophil# 0.03 X10^3/uL; Basophil% 0.5 % (0-1); Eosinophil# 0.02 X10^3/uL; Eosinophils% 0.3 % (0-5); Hematocrit 32.3 % (37-47); Hemoglobin 10.6 g/dL (12.0-15.0); Lymphocyte # 0.77 X10^3/ul (0.83-4.51); Lymphocyte % 13.4 % (19-41); Mean Corp Hgb Conc 32.8 g/dL (32-36); Mean Corpuscular Hgb 29.9 pg (27.0-32.0); Mean Corpuscular Volume 91.2 fL (81-99); Mean Platelet Vol. 10.4 fl (6.2-12.0); Monocyte# 0.53 X10^3/uL; Monocyte% 9.2 % (0-10); NRBC Flagged by Analyzer 0 % (0-5); Neutrophil # 4.38 X10^3/uL (2.7-7.7); Neutrophil % 76.1 % (47-70); Platelet Count 172 K/mm3 (150-450); RBC Distribution Width CV 12.7 % (11.6-14.6); RBC Distribution Width SD 42.4 fl (35.1-43.9); Red Blood Count 3.54 M/mm3 (4.2-5.4); White Blood Count 5.8 K/mm3 (4.4-11.0)
[2021-11-04 05:09] VITALS: TEMP 37.1
[2021-11-04 05:24] LABS: Anion Gap 10 (5-15); BUN 6 mg/dL (7-18); BUN/Creat Ratio 9.4 RATIO (10-20); Calcium,Total 7.9 mg/dL (8.5-10.1); Chloride 107 mmol/L (98-107); Creatinine, Serum 0.64 mg/dL (0.55-1.02); EST Glomerular Filtration Rate 115 mL/min (>60); Est Glom Filt Rate - Afr Amer 140 mL/min (>60); Estimated Creatinine Clearance 96.99 ml/min; Glucose 107 mg/dL (74-106); Potassium 3.5 mmol/L (3.5-5.1); Sodium Level 138 mmol/L (136-145)
--- NOTE | 2021-11-04 05:52 | NURSING ---
pt is refusing her covid test. States she doesn't need it. Attempted to provide education.
--- NOTE | 2021-11-04 06:35 | CPS ---
0544 pt requested not to have COVID swab done at this time; She states she does not understand why she needs this done when she doesn't have any symptoms of COVID, except a fever RT notified RN of this response and RN notified physician.
--- NOTE | 2021-11-04 07:11 | NURSING ---
pt informed of needing COVID test d/t temps and pt now with cough. pt adamantly refuses to be tested. states i have been fine and i want to go home. i don't need my ivf either and want it removed. pt updated on COVID testing/ s&S/visitor restrictions. pt states 'i am not going to take the test and i would like to go home now. Primary Nurse Nimo part of discussion as well. much education and teachback provided, pt adamant she is NOT being tested and wants to leave. Text to Dr. Day
--- NOTE | 2021-11-04 07:24 | NURSING ---
pt agreeable to have a kidney ultrasound but continues to refuse covid test.
--- NOTE | 2021-11-04 07:39 | US_ITS ---
STUDY: RENAL ULTRASOUND - COMPLETE REASON FOR EXAM: Female, 31 years old. pyelonephritis TECHNIQUE: Ultrasound evaluation of the kidneys was performed with real-time and static pacheco-scale imaging. COMPARISON: None. FINDINGS: RIGHT KIDNEY: Normal location of the right kidney, which is normal in size. The right kidney measures 11.2 cm. There is a normal cortex of the right kidney. The renal cortex measures 1.5 cm. There is no right renal mass or cyst. There are no right renal calculi. There is mild hydronephrosis of the right kidney. DISTAL RIGHT URETER: There is non-visualization of the distal right ureter. There is no demonstrated right ureterovesical junction calculus. There is a visualized right ureteral jet. LEFT KIDNEY: Normal location of the left kidney, which is normal in size. The left kidney measures 10.4 cm. There is a normal cortex of the left kidney. The renal cortex measures 1.1 cm. There is no left renal mass or cyst. There are no left renal calculi. There is no left hydronephrosis. DISTAL LEFT URETER: There is non-visualization of the distal left ureter. There is no demonstrated left ureterovesical junction calculus. There is a visualized left ureteral jet. BLADDER: The distended urinary bladder has a volume of 202 ml. The empty urinary bladder has a volume of ml. There is a normal wall thickness of the distended urinary bladder. There is no demonstrated mass within the urinary bladder. There are no demonstrated bladder calculi. US/Kidney and Bladder IMPRESSION: Mild right hydronephrosis. Electronically Signed: Yung Hightower MD at 10:36 EDT ,
[2021-11-04 08:30] VITALS: O2SAT 98
[2021-11-04 09:23] VITALS: BP 121/86; PULSE 100; RESP 18; TEMP 37.2; O2SAT 98
[2021-11-04] MEDS: LEVONORGESTREL/ETHIN.ESTRADIOL 1 EACH TABLET PO (09:27)
[2021-11-04] MEDS: 0.9% Saline Lock 10 ML Syringe IV (09:27)
--- NOTE | 2021-11-04 10:20 | NURSING ---
pt mother at bedside, updated on visitor policy and COVID/refusal of test and safety precautions/policies. per Director Lizzie Barbour pt mother okay to stay as long as she stays in room with pt and uses proper hand/cough hygiene. Pt mother informed and is agreeable to follow policy/safety standards and states she appreciates everyones help.
--- NOTE | 2021-11-04 10:42 | DS.PCM_ITS ---
Providers Date of Admission: 11/01/21 Date of Discharge: 11/04/21 Primary Care Physician: Mandy Primary Care Phys Consultations 11/02/21 16:06 Consult: Urology Routine Consulting Provider: Julián Lyons Reason for Consult: PYELONEPHRITIS EMERGENT Consult: Yes MD Notified: Yes Date Notified: 11/02/21 Time Notified: 16:06 Method of Notification: Text Method of Consult:: In-Person Reason For Visit: ACUTE PYELONEPHRITIS & MULTIFOCAL LOBAR NEPHRONIA Diagnosis Discharge Diagnosis (1) Pyelonephritis of right kidney: Status: Acute Code(s): N12 - Tubulo-interstitial nephritis, not specified as acute or chronic (2) Cystitis: Status: Acute Code(s): N30.90 - Cystitis, unspecified without hematuria (3) Acute dehydration: Status: Acute Code(s): E86.0 - Dehydration (4) Intractable nausea and vomiting: Status: Acute Code(s): R11.2 - Nausea with vomiting, unspecified Plan Acute pyelonephritis/multifocal lobar nephronia of the right kidney/UTI -Patient did have an outpatient culture on 10/31/2021 with E. coli--> had 5 to 6 days of symptoms prior to initiating treatment -Fairly sensitive organism with resistance only to ampicillin and Bactrim -Had only 2 doses of Macrobid prior to presentation -Patient clinically reports that she is improved and feeling much better however she still having fevers and is mildly tachycardic -Continue ceftriaxone with plans to transition to oral antibiotics at discharge--> will treat for total of 14 days -Urology has evaluated the patient -Urology recommends a ultrasound tomorrow if she continues to spike fevers -Patient DID NOT MEET SEPSIS criteria on admission as she had no endorgan damage related to her acute infection -Presented with fever, leukocytosis, and tachycardia but no signs of endorgan dysfunction Nausea and vomiting -Resolved Hyperglycemia -Suspect reactive -Hemoglobin A1c this morning was 4.9 ADD/insomnia -Patient is not currently on a regimen -Outpatient follow-up Marijuana use -Patient uses for insomnia -Recommend outpatient follow-up DVT prophylaxis -Low risk -Early ambulation protocol CODE STATUS -Full code Medications at Discharge Home Medications levonorgestrel-ethinyl estradiol 0.1 mg-20 mcg tablet (Vienva) 1 tab PO DAILY 03/18/21 phenazopyridine 100 mg tablet (Pyridium) 100 mg PO TID PRN pain 6 doses #7 tabs 10/31/21 ciprofloxacin HCl 500 mg tablet 500 mg PO BID #10 tabs 11/04/21 Hospital Course Operations None Procedures - (CT of the abdomen pelvis/renal ultrasound) Summary of Care Provided Minutes Spent on Discharge: 36 Hospital Course: Ms. Ingram is a 31-year-old white female presented to the emergency department [facility] on 11/01/2021 complaining of worsening fevers, nausea, vomiting, diarrhea and chills with poor p.o. intake. The patient indicated she had a history of dysuria, urgency, and frequency that started approximately 9 to 10 days prior to presentation the emergency department however she was unable to make an appointment until the day prior to presentation at which time a urine was performed and she was noted to have a UA consistent with infection. She was given nitrofurantoin and had taken 2 doses but noted she was not feeling any worse and had developed nausea vomiting diarrhea and fevers. She indicated she was unable to keep anything down was complaining of right flank pain. She indicated she was having fevers up to 103 degrees at night. Between her temperature elevation and worsening flank pain she decided to be evaluated emergency department. Records from the urgent care were reviewed on admission and her urine culture showed gram-negative rods at greater than 100,000. In the emergency department her T-max was 99.5, heart rate was 143 initially with reduction to 111, blood pressure was 125/88, respiratory rate 16, and oxygen saturation was 98% on room air. Her white count was 15.6 with a left shift. Her CMP was consistent with mild dehydration. Her serum test was negative. Her urinalysis was consistent with acute i nfection and urine and blood cultures were obtained at that time. A CT of the abdomen pelvis in the emergency department were performed given her flank pain and was found to be consistent with acute pyelonephritis and multi focal lobular nephronia of the right kidney with coexisting cystitis. She was treated with Zofran, morphine, and Rocephin as well as IV fluids in the emergency department and the case was discussed with Dr. Lyons she was admitted to the medical floor. She was maintained on IV antibiotics as well as pain medication and medication for nausea and vomiting. She was maintained on IV fluids until her oral intake was adequate and her nausea vomiting ceased. She clinically improved within 24 to 36 hours of IV antibiotic administration but had persistent fevers. Given her persistent fevers urology recommended an ultrasound be performed to rule out renal abscess this was done on the a.m. of 11/04/2021 and was negative for abscess and showed only mild right hydronephrosis. I discussed the case with urology and they felt that she was stable for discharge home. Blood cultures were negative at 48 hours. Her fever curve have improved however she was still having intermittent fevers. We discharged her home on oral antibiotics with ciprofloxacin 500 mg twice daily to complete a 7- day course and Pyridium. We did discuss that her control would be less effective while she was on antibiotics and recommended either abstinence versus alternative methods of control for the next 30 days. She instructed to follow-up with urology in 2 weeks and is to call for an appointment. She was discharged home in stable condition. Discharge diagnoses: Acute pyelonephritis/multifocal lobular nephronia of the right kidney Mild hydronephrosis E. coli urinary tract infection Nausea and vomiting-resolved Hyperglycemia-reactive (A1c 4.9) ADD Insomnia Anxiety Marijuana use Physical Exam Narrative Still febrile overnight however the patient states she is feeling back to baseline. Refused COVID testing through the night. Const alert, oriented x3, no apparent distress, average body habitus, healthy appearing and well nourished Constitutional Narrative: Young white female sitting up in a chair, patient appears comfortable and nontoxic General Appearance: cooperative, comfortable, well kempt and well developed Orientation / Consciousness: awake HEENT normocephalic, head/scalp atraumatic, hearing grossly normal bilaterally, moist oral mucous membranes and oropharynx normal HEENT Narrative: Mallampati 2 no thrush Eyes PERRL, EOMs intact bilaterally and conjunctivae normal Eyes Narrative: No scleral icterus Neck no lymphadenopathy, supple, no JVD and no carotid bruits Neck Narrative: Trachea midline, no thyroid enlargement Resp normal respiratory effort, no retractions, no use of accessory muscles and clear to auscultation bilaterally Auscultation: Negative for crackles, rales, rhonchi or wheezes Cardio regular rate, regular rhythm, S1 normal heart sound, S2 normal heart sound, no murmurs, no rub, no gallops, no clicks and no JVD GI normal to inspection, nondistended, normoactive bowel sounds, soft to palpation, non-tender and non-distended Extremity no clubbing, cyanosis or edema Extremity Narrative: Pedal pulses 2+ Skin no rashes or lesions noted, no wounds, skin turgor normal and no jaundice Neuro oriented x3, CN's II-XII intact bilaterally, moves all extremities, no focal motor deficits and no sensory deficits noted Sensorium / Orientation: awake, alert, oriented to person, oriented to place and oriented to time Speech: speech normal Motor Exam: strength 5/5 throughout Psych affect normal Weight / BMI Weight Weight: 56.274 kg Body Mass Index (BMI) 23.4 ABG / Lab / Microbiology Data Result Diagrams: 11/04/21 03:54 11/04/21 03:54 Laboratory: Laboratory Results - last 24 hr 11/04/21 03:54: WBC 5.8, RBC 3.54 L, Hgb 10.6 L, Hct 32.3 L, MCV 91.2, MCH 29.9, MCHC 32.8, RDW Std Deviation 42.4, RDW Coeff of Viktoria 12.7, Plt Count 172, MPV 10.4, Immature Gran % (Auto) 0.500, Neut % (Auto) 76.1 H, Lymph % (Auto) 13.4 L, [place] % (Auto) 9.2, Eos % (Auto) 0.3, Baso % (Auto) 0.5, Absolute Neuts (auto) 4.4, Absolute Lymphs (auto) 0.77 L, Nucleated RBC % 0 11/04/21 03:54: Sodium 138, Potassium 3.5, Chloride 107, Carbon Dioxide 21.0, Anion Gap 10, BUN 6 L, Creatinine 0.64, Estim Creat Clear Calc 96.99, Est GFR (MDRD) Af Amer 140, Est GFR (MDRD) Non-Af 115, BUN/Creatinine Ratio 9.4 L, Glucose 107 H, Calcium 7.9 L Microbiology: Microbiology 11/01/21 19:25 Blood Culture (Wb) - Anticubital Right Blood Culture - Preliminary No growth in 48 hours. 11/01/21 18:52 Blood Culture (Wb) - Anticubital Left Blood Culture - Preliminary No growth in 48 hours. 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 Electronically Signed: Yung Hightower MD at 10:36 EDT , D/C Instructions Discharge Diet: No restrictions Discharge Activity: Return to Normal Activity Return to work on: 11/05/21 Call your doctor if you observe: Fever of 101 or Higher and Inability to urinate Meaningful Use Info Meaningful Use Diagnoses (Choose all that apply): None applicable Discharge Plan Admission Admit Date/Time: 11/01/21 22:10 Primary Reason for Your Visit: UTI/Pyelonephritis/Nephronia Attending Provider: Maci Day Primary Care Provider: Care Physician,No Primary Consulting Providers: Lydia Shay ; Julián Lyons Instructions Additional Instructions / Restrictions: 1. Would recommend abstinence while on antibiotics as control will be less effective for a period of 30 days or other modes of control while on antibiotics and 30 days thereafter 2. Please call Dr. Lyons's office for follow-up appointment to be seen in the next 2 weeks Discharge Orders/Prescriptions Prescriptions: New ciprofloxacin HCl 500 mg tablet 500 mg PO BID Qty: 10 0RF Continued levonorgestrel-ethinyl estrad [Vienva] 0.1-20 mg-mcg tablet 1 tab PO DAILY phenazopyridine [Pyridium] 100 mg tablet 100 mg PO TID PRN (Reason: pain) Qty: 7 0RF Rx Instructions: administer with a full glass of water after each meal Discontinued nitrofurantoin monohyd/m-cryst 100 mg capsule 1 cap PO Q12H 7 Days Qty: 14 0RF Rx Instructions: administer with a meal/food; swallow whole; do not open, crush, dissolve , or chew Referrals / Follow Up: Julián Lyons MD [STAFF PHYSICIAN] - Within 2 Weeks (call for an appt) Tristen Cortez MD [NON-STAFF] - Care Physician,No Primary [Primary Care Provider] - Disposition Disposition (needs filled in before D/C Order can be placed): Home, Self Care Charges/Coding Visit Charges Inpatient E&M: 70580 Disch Hosp
== END 2021-11-04 11:25 | disposition home or self-care (01) | DRG 690 ==
LOC: ED 22:15 → MS3 22:55
PROVIDERS: Admitting Provider Family Medicine; Emergency Provider Emergency Medicine; Visit Provider Internal Medicine
DX: N10 Acute pyelonephritis (principal); N30.00 Acute cystitis without hematuria; E86.0 Dehydration; R11.2 Nausea with vomiting, unspecified; F12.10 Cannabis abuse, uncomplicated; B96.20 Unspecified Escherichia coli [E. coli] as the cause of diseases classified elsewhere; R73.9 Hyperglycemia, unspecified
CPT/HCPCS: 36415; 74177; 76770; 80048; 80053; 81001; 83036; 83605; 83690; 84703; 85025; 87040; 87086; 87088; 93005; 97802; 99251; 99284; J7030; Q9967; A4216; G0463; J2405

== ENCOUNTER → 2022-01-21 | Outpatient (CLI) | payer OTHER, SELFPAY ==
[2022-01-21 11:53] LABS: Absolute Lymphocyte Count 2.21 X10^3/uL (0.83-4.51); Absolute Neutrophil Count 6.7 X10^3/uL (2.0-7.7); Basophil# 0.05 X10^3/uL; Basophil% 0.5 % (0-1); Eosinophil# 0.05 X10^3/uL; Eosinophils% 0.5 % (0-5); Hemoglobin 15.2 g/dL (12.0-15.0); Lymphocyte # 2.21 X10^3/ul (0.83-4.51); Lymphocyte % 23.3 % (19-41); Mean Corp Hgb Conc 33.8 g/dL (32-36); Mean Corpuscular Hgb 29.7 pg (27.0-32.0); Mean Corpuscular Volume 87.9 fL (81-99); Mean Platelet Vol. 10.7 fl (6.2-12.0); Monocyte# 0.47 X10^3/uL; NRBC Flagged by Analyzer 0 % (0-5); Neutrophil # 6.66 X10^3/uL (2.7-7.7); Neutrophil % 70.2 % (47-70); Platelet Count 334 K/mm3 (150-450); RBC Distribution Width SD 38.8 fl (35.1-43.9); Red Blood Count 5.12 M/mm3 (4.2-5.4); White Blood Count 9.5 K/mm3 (4.4-11.0)
[2022-01-21 12:19] LABS: AST(SGOT) 19 U/L (15-37); Alanine Aminotransfer ALT/SGPT 20 U/L (13-56); Albumin, Serum 3.7 g/dL (3.2-5.0); Alkaline Phosphatase 59 U/L (45-117); Anion Gap 12 (5-15); BUN 10 mg/dL (7-18); BUN/Creat Ratio 12.6 RATIO (10-20); Calcium,Total 8.9 mg/dL (8.5-10.1); Chloride 106 mmol/L (98-107); Creatinine, Serum 0.79 mg/dL (0.55-1.02); EST Glomerular Filtration Rate 90 mL/min (>60); Est Glom Filt Rate - Afr Amer 109 mL/min (>60); Ferritin 43 ng/mL (8-252); Free T3 3.2 pg/mL (2.18-3.98); Globulin 3.8 g/dL (2.2-4.2); Glucose 73 mg/dL (74-106); Iron 128 ug/dL (50-170); Protein, Total 7.5 g/dL (6.4-8.2); Sodium Level 138 mmol/L (136-145); T4 Free Direct 1.32 ng/dL (0.76-1.46); Thyroid Stim Hormone (TSH) 0.35 uIU/mL (0.358-3.74)
[2022-01-23 09:16] LABS: Vitamin B12 584 pg/mL (211-911); Vitamin D,25 Hydroxy 26.3 ng/mL
== END | disposition home or self-care (01) ==
LOC: LABSPEC 11:39
PROVIDERS: Referring Provider Nurse Practitioner Family; Visit Provider Nurse Practitioner Family
DX: R53.83 Other fatigue (principal); F41.9 Anxiety disorder, unspecified; F32.A Depression, unspecified; R00.0 Tachycardia, unspecified
CPT/HCPCS: 80053; 82306; 82607; 82728; 83540; 84439; 84443; 84481; 85025

== ENCOUNTER → 2023-04-19 | Outpatient (CLI) | payer OTHER, SELFPAY ==
--- NOTE | 2023-04-19 14:09 | RAD_ITS ---
STUDY: X-RAY - RIGHT HAND, ATTENTION INDEX FINGER REASON FOR EXAM: Female, 32 years old. Crushing injury right index finger TECHNIQUE: 3 view(s) of the finger were obtained. COMPARISON: None. FINDINGS: Normal metacarpal head. Normal metacarpophalangeal joint. Normal proximal phalanx. Normal middle phalanx. Normal distal phalanx. Normal proximal interphalangeal joint. Normal distal interphalangeal joint. RAD/Finger(s) Min 2 Views IMPRESSION: Normal x-ray examination of the finger. Electronically Signed: Donte Black MD at 14:33 EST ,
== END | disposition home or self-care (01) ==
LOC: MTRAD 14:09
PROVIDERS: Referring Provider Physician Assistant Surgical; Visit Provider Physician Assistant Surgical
DX: S67.190A Crushing injury of right index finger, initial encounter (principal); X58.XXXA Exposure to other specified factors, initial encounter
CPT/HCPCS: 73140

== ENCOUNTER → 2023-04-27 | Outpatient (CLI) | payer OTHER, SELFPAY ==
--- NOTE | 2023-04-27 14:36 | RAD_ITS ---
STUDY: X-RAY - RIGHT HAND, ATTENTION THIRD FINGER REASON FOR EXAM: Female, 32 years old. Pain following injury. TECHNIQUE: 3 view(s) of the finger were obtained. COMPARISON: None. FINDINGS: Normal metacarpal head. Normal metacarpophalangeal joint. Normal proximal phalanx. Normal middle phalanx. Normal distal phalanx. Normal proximal interphalangeal joint. Normal distal interphalangeal joint. RAD/Finger(s) Min 2 Views IMPRESSION: Normal x-ray examination of the finger. Electronically Signed: Donte Black MD at 15:07 EST ,
== END | disposition home or self-care (01) ==
LOC: MTRAD 14:36
PROVIDERS: Referring Provider Physician Assistant Surgical; Visit Provider Physician Assistant Surgical
DX: S69.91XA Unspecified injury of right wrist, hand and finger(s), initial encounter (principal); X58.XXXA Exposure to other specified factors, initial encounter
CPT/HCPCS: 73140

== ENCOUNTER 2025-02-25 19:36 | Emergency (ER) | payer SELFPAY ==
[2025-02-25 19:37] VITALS: BP 120/72; PULSE 76; RESP 18; TEMP 35.6; O2SAT 100; BMI 28.9
[2025-02-25 20:37] LABS: Hematocrit 41.4 % (37-47); Hemoglobin 13.9 g/dL (12.0-15.0); Immature Granulocytes Count 0.040 X10^3/uL (0.0-0.0); Mean Corp Hgb Conc 33.6 g/dL (32-36); Mean Corpuscular Volume 87.2 fL (81-99); Mean Platelet Vol. 10.4 fl (6.2-12.0); NRBC Flagged by Analyzer 0 % (0-5); Platelet Count 263 K/mm3 (150-450); RBC Distribution Width CV 12.2 % (11.6-14.6); RBC Distribution Width SD 39.2 fl (35.1-43.9); Red Blood Count 4.75 M/mm3 (4.2-5.4); White Blood Count 14.3 K/mm3 (4.4-11.0)
[2025-02-25 20:44] LABS: Barbiturate Urine NEGATIVE (< 200 ng/mL); Benzodiazepine Urine NEGATIVE (< 200 ng/mL); PCP Urine NEGATIVE (< 25 ng/mL); THC Urine PRESUMPTIVE POSITIVE (< 50 ng/mL)
[2025-02-25 20:49] LABS: Alcohol, Blood (Medical)-Serum < 10.1 mg/dL (<=10.0); Anion Gap 13 (5-15); BUN 11 mg/dL (4-19); BUN/Creat Ratio 15.4 RATIO (10-20); Calcium,Total 9.2 mg/dL (7.6-11.0); Carbon Dioxide 17.8 mmol/L (21.0-32.0); Chloride 106 mmol/L (98-108); Estimated Creatinine Clearance 103.33 ml/min (50-250); Glucose 103 mg/dL (70-99); Potassium 3.9 mmol/L (3.3-5.1)
[2025-02-25 20:59] LABS: Internal QC Validated? YES +Cl - CLEAR BKGD; Pregnancy, Serum, hCG Quali. NEGATIVE Negative; Record Kit Lot#, Serum Preg. 980607
--- NOTE | 2025-02-25 21:08 | EDS_ITS ---
HPI History of Present Illness Chief Complaint: Suicidal Narrative Narrative: Chief complaint and HPI: 34-year-old female who was pink slipped by police presents for evaluation of suicidal thoughts. Patient has a history of anxiety, depression, PTSD. States she got an argument with her boyfriend today and then began having suicidal thoughts. She does not believe that she would ever act on these. States she did not have a plan. States she was asked by police that if she did have a plan what would it be, she states it would be overdose. She states she more wishes second hand injury such as somebody running into her with a car. She denies any homicidal ideations. Denies any visual or auditory hallucinations. She states that she does not have money for outpatient resources but she would like to get into therapy. She does occasionally self- harm. Review of systems: See HPI Medications: As listed on the chart Allergies: As listed on the chart PFSH: Per chart Vital signs: As listed on the chart. Reviewed. Physical exam: Gen: A&O x3, tearful Head: Normocephalic, atraumatic Eyes: No sclera icterus, conjunctiva clear ENT: Moist mucous membranes CV: RRR, no murmurs Resp: Lungs CTA BL, no w/r/c GI: Abd soft, non-distended, non-tender, no r/r/g Musc: Full ROM, no deformity Skin: Warm, dry, abrasion to the left volar forearm from previous self-harm days ago-not infected or need to repair Neuro: Alert, oriented, grossly intact, sensation intact Psych: Cooperative, tearful but insightful PFSH PFSH Medical History PTSD (post-traumatic stress disorder) Anxiety Depression Insomnia Cannabis use disorder, mild, abuse ADD (attention deficit disorder) Pyelonephritis of right kidney Cystitis Home Medications ?Medication ?Instructions ?Recorded ?Last Taken ?Type NK 02/25/25 Unknown History Allergy/AdvReac Type Severity Reaction Status Date / Time methylphenidate HCl (From Allergy Other Verified 02/25/25 19:37 Concerta) oxycodone Allergy Upset Verified 02/25/25 19:37 Stomach benzoyl peroxide AdvReac Swelling Verified 02/25/25 19:37 Family History Mother HLD (hyperlipidemia) GERD (gastroesophageal reflux disease) IBS (irritable bowel syndrome) Surgical History History of dental surgery S/P appendectomy Social History household members: family Smoking Status: Never smoker alcohol intake: never substance use type: marijuana EXAM Physical Exam Const Vital Signs: 02/25/25 19:37 Temperature 96.1 F L Temperature Source Temporal Pulse Rate 76 Respiratory Rate 18 Blood Pressure 120/72 Blood Pressure Mean 88 Pulse Ox 100 Oxygen Delivery Method Room Air MDM MDM MDM Narrative Medical decision making narrative: 34-year-old female who was pink slipped by police presents for evaluation of suicidal thoughts. Patient has a history of anxiety, depression, PTSD. States she got an argument with her boyfriend today and then began having suicidal thoughts. She does not believe that she would ever act on these. States she did not have a plan. She states she more wishes second hand injury such as somebody running into her with a car. She denies any homicidal ideations. Denies any visual or auditory hallucinations. She states that she does not have money for outpatient resources but she would like to get into therapy. She does occasionally self-harm. Patient has great insight to her suicidal thoughts. Not actively suicidal. I do not think pink slip is needed at this time. Patient was offered inpatient psychiatry placement willingly but declined. Social work consulted. Social work evaluated the patient. Patient safety planned and given outpatient resources. I do think this is appropriate. Patient stable to discharge home. Patient had mental health laboratory workup ordered prior to me seeing the patient per protocol. CBC with mild leukocytosis of 14.3. No anemia. BMP relatively unremarkable. Serum negative. Urine drug screen negative except for THC. Alcohol level unremarkable. Impression: 1. Suicidal thoughts 2. History of depression and anxiety 3. Self-harm tendencies Lab Data Labs: Laboratory Results - last 24 hr 02/25/25 19:50 WBC 14.3 H RBC 4.75 Hgb 13.9 Hct 41.4 MCV 87.2 MCH 29.3 MCHC 33.6 RDW Std Deviation 39.2 RDW Coeff of Viktoria 12.2 Plt Count 263 MPV 10.4 Immature Gran % (Auto) 0.300 Neut % (Auto) 89.6 H Lymph % (Auto) 6.3 L [place] % (Auto) 3.4 Eos % (Auto) 0.0 Baso % (Auto) 0.4 Absolute Neuts (auto) 12.9 H Absolute Lymphs (auto) 0.90 Nucleated RBC % 0 Sodium 137 Potassium 3.9 Chloride 106 Carbon Dioxide 17.8 L Anion Gap 13 BUN 11 Creatinine 0.69 L Estim Creat Clear Calc 103.33 Est GFR (MDRD) Non-Af 118 BUN/Creatinine Ratio 15.4 Glucose 103 H Calcium 9.2 Serum , Qual NEGATIVE Urine Opiates Screen NEGATIVE U Buprenorphine Qual NEGATIVE Ur Oxycodone Screen NEGATIVE Urine Methadone Screen NEGATIVE Urine Fentanyl Screen NEGATIVE Ur Barbiturates Screen NEGATIVE Ur Phencyclidine Scrn NEGATIVE Ur Amphetamines Screen NEGATIVE U Benzodiazepines Scrn NEGATIVE Urine Cocaine Screen NEGATIVE U Cannabinoids Screen PRESUMPTIVE POSITIVE Ethyl Alcohol < 10.1 Discharge Plan Triage Chief Complaint: Suicidal ED Provider: Matt Beasley Dx/Rx/DC Orders Prescriptions: No Action NK Primary Care Provider: Care Physician,No Primary Referrals: Care Physician,No Primary [Primary Care Provider, Medical] Print Language: Ukrainian
--- OUTSIDE RECORDS SUMMARY | 2025-02-25 21:12 | XMS RPT_ITS | CCD ---
Author Organization [facility] Care Team Providers Care Tax Director Name Role Phone Hugo, Cintia Unavailable Unavailable Hugo, Cintia Unavailable Unavailable Hugo, Cintia Unavailable Unavailable Hugo, Cintia Unavailable Unavailable Hugo, Cintia Unavailable Unavailable Dr. Tristen Cortez Primary Care Provider Dr. Tristen Cortez Referring Provider [phone] HEAVENLY Humphrey Attending Provider Dr. Claudio Contreras Emergency Provider Care Physician, No Primary Primary Care Provider Unavailable Dr. Lydia Shay Admit Provider Dr. Lydia Shay Attending Provider Dr. Lydia Shay Other Provider Dr. Maci Day Attending Provider Dr. Maci Day Other Provider Dr. Julián Lyons Other Provider Care Physician, No Primary Primary Care Provider Unavailable Care Physician, No Primary Referring Provider Un available HEAVENLY Humphrey Attending Provider Que Humphrey Attending Unavailable Care Physician, No Primary Referring Unava ilable Care Physician, No Primary Primary Care Unava ilable Care Physician, No Primary Primary Care Unava ilable Noe BURDICK, Que Referring Unavailable Noe BURDICK, Que Attending Unavailable Noe BURDICK, Que Referring Unavailable Noe BURDICK, Que Attending Unavailable Care Physician, No Primary Primary Care Unava ilable Que Humphrey Attending Unavailable Care Physician, No Primary Referring Unava ilable Care Physician, No Primary Primary Care Unava ilable PHYSICIAN, NONE Primary Care Physician Unavailab prabhjot JACK MD, JB Carlos Attending Unavail able PHYSICIAN, NONE Primary Care Unavailable PHYSICIAN, NONE Primary Care Unavailable NANCY RAMIREZ, DR JAMES Attending Unavailpedro pablo e Allergies Allergy Classification Reported Allergen(s) Allergy Type Date of Onset Reaction(s) Facility (6 sources) Benzoyl Peroxide Drug Allergy 2 Rash, Swelling [facility] (7 sources) Methylphenidate; Translations: [methylphenidate HCl] Drug Allergy 2 Other [facility] (8 sources) oxyCODONE; Translations: [oxycodone] Drug Allergy 2 Upset Stomach [facility] (1 source) Benzoyl Peroxide Drug Allergy 3 [facility] Repository (1 source) oxyCODONE Drug Allergy 3 [facility] (2 sources) Methylphenidate; Translations: [methylphenidate ] Drug Allergy [facility] Medications Current Medications Medication Drug Class(es) Dates Sig (Normalized) Sig (Original) acetaminophen 500 mg oral tablet (2 sources) Start: 04-27-2023 take 2 tablets by mouth every six hours Acetaminophen (Tylenol Extra Strength) 500 mg tablet Active 1000 MG PO EVERY 6 HOURS April 27, 2023 12:00am bismuth subsalicylate 17.5 mg/ml oral suspension (2 sources) Bismuth Start: 04-27-2023 Bismuth Subsalicylate (Pepto-Bismol) 262 mg/15 mL suspension Active 524 MG PO every 30 to 60 minutes April 27, 2023 12:00am do not exceed 8 doses in a 24 hour period Levonorgestrel-Ethi nyl Estrad (6 sources) Progestin, Estrogen, Progestin-containi ng Intrauterine Device Start: 03-18-2021 take 1 tablet by mouth once daily Levonorgestrel-Ethi nyl Estrad (Vienva) 0.1-20 mg-mcg tablet Active 1 TABLET PO DAILY March 18, 2021 12:00am Start: 03-18-2021 take 1 tablet by abbi th once daily Levonorgestrel-Ethinyl Estrad (Vienva) 0.1-20 mg-mcg tablet Active 1 TABLET PO DAILY March 18, 2021 1:00am ibuprofen 600 mg oral tablet (2 sources) Nonsteroidal Anti-inflammatory Drug Start: 07-23-2018 ibuprofen 600 mg oral tablet Dose : 600 mg = 1 tab(s), Oral, QID, PRN as needed for pain, # 30 tab(s), 0 Refill(s) Start Date: 07/23/18 Status: Ordered Quantity: 30.0 Unit: tab(s) Repeat number: 1 loperamide hydrochloride 2 mg oral tablet (1 source) Opioid Agonist Start: 05-17-2023 End: 05-24-2023 take 1 tablet by mouth once as needed, then take 1 tablet by mouth every four hours as needed Imodium A-D 2 mg oral tablet Dose : 2 mg = 1 tab(s), Oral, q4h, PRN for loose stool, X 7 day(s), # 30 tab(s), 0 Refill(s), 05/24/23 3:17:00 PM EST Start Date: 05/17/23 Stop Date: 05/24/23 Status: Ordered ondansetron 4 mg disintegrating oral tablet (10 sources) Serotonin-3 Receptor Antagonist Start: 06-25-2024 End: 06-28-2024 ondansetron 4 mg oral tablet, disintegrating Dose : 4 mg = 1 tab(s), Oral, TID, X 3 day(s), # 10 tab(s), 0 Refill(s), 06/28/24 12:43:00 AM EST Start Date: 06/25/24 Stop Date: 06/28/24 Status: Ordered Quantity: 10.0 Unit: tab(s) Repeat number: 1 Start: 05-17-2023 End: 05-22-2023 Zofran 4 mg oral tablet Dose : 4 mg = 1 tab(s), Oral, q6h, PRN Nausea/Vomiting, X 5 day(s), # 20 tab(s), 0 Refill(s), 05/22/23 3:17:00 PM EST Start Date: 05/17/23 Stop Date: 05/22/23 Status: Ordered Start: 04-27-2023 take 8 mg by mouth e very eight hours Ondansetron Hcl Active 8 MG PO Q8H April 27, 2023 12:00am Start: 07-27-2017 End: 03-18-2021 take 4 mg by mouth every eight hours as needed Ondansetron Discontinued 4 MG PO EVERY 8 HOURS NEEDED July 26, 2017 11:00pm March 18, 2021 4:29pm Completed/Discontinued Medications Medication Drug Class(es) Dates Sig (Normalized) Sig (Original) acetaminophen 325 mg / HYDROcodone bitartrate 5 mg oral tablet (2 sources) Opioid Agonist Start: 07-23-2018 End: 07-25-2018 take 1 tablet by mouth every four hours as needed for pain Joanna 325- 5 mg oral tablet Dose = 1 tab(s), Oral, q4hr, PRN as needed for pain, # 10 tab(s), 0 Refill(s), Neck muscle spasm Start Date: 07/23/18 Stop Date: 07/25/18 Status: Ordered Quantity: 10.0 Unit: tab(s) Repeat number: 1 Indication: Other muscle spasm ciprofloxacin 500 mg oral tablet (5 sources) Quinolone Antimicrobial Start: 11-04-2021 End: 04-27-2023 take 500 mg by mouth twice daily Ciprofloxacin Hcl Discontinued 500 MG PO TWICE A DAY November 03, 2021 11:00pm April 27, 2023 2:23pm cyclobenzaprine hydrochloride 10 mg oral tablet (2 sources) Muscle Relaxant Start: 07-23-2018 End: 07-28-2018 take 1 tablet by mouth three times daily as needed for muscle spasms Flexeril use cyclobenzaprine Dose : 10 mg =, Oral, TID, PRN Muscle spasm, # 15 tab(s), 0 Refill(s) Start Date: 07/23/18 Stop Date: 07/28/18 Status: Ordered Quantity: 15.0 Unit: tab(s) Repeat number: 1 nitrofurantoin, macrocrystals 25 mg / nitrofurantoin, monohydrate 75 mg oral capsule (6 sources) Nitrofuran Antibacterial Start: 10-31-2021 End: 11-04-2021 take 1 capsule by mouth every twelve hours at mealtime Nitrofurantoin Monohyd/M-Cryst Discontinued 1 CAP PO Q12H 14 7 October 30, 2021 11:00pm November 04, 2021 9:44am administer with a meal/food; swallow whole; do not open, crush, dissolve , or chew phenazopyridine hydrochloride 100 mg oral tablet (6 sources) Start: 10-31-2021 End: 04-27-2023 take 1 tablet by mouth three times daily at mealtime Phenazopyridine (Pyridium) 100 mg tablet Discontinued 100 MG PO THREE TIMES A DAY October 30, 2021 11:00pm April 27, 2023 2:23pm administer with a full glass of water after each meal Problems Active Problems Problem Classification Problem Date Documented Da te Episodic/Chronic Crushing injury or internal injury (7 sources) Crush injury of right index finger; Translations: [Crushing injury of right index finger, initial encounter] Onset: 04-26-2023 04-19-2023 Episodic Fluid and electrolyte disorders (9 sources) Dehydration; Translations: [Dehydration] Episodic Nausea and vomiting (10 sources) Intractable nausea and vomiting; Translations: [Nausea with vomiting, unspecified] Onset: 06-25-2024 Episodic Noninfectious gastroenteritis (8 sources) Gastroenteritis; Translations: [Noninfective gastroenteritis and colitis, unspecified] Onset: 05-17-2023 07-28-2017 Episodic Other gastrointestinal disorders (1 source) Diarrhea; Translations: [Diarrhea, unspecified] Onset: 06-25-2024 Episodic Other injuries and conditions due to external causes (2 sources) Injury of finger of right hand; Translations: [Unspecified injury of right wrist, hand and finger(s), initial encounter] 04-27-2023 Episodic Other injuries and conditions due to external causes (3 sources) Unspecified injury of right wrist, hand and finger(s), initial encounter; Translations: [Finger injury] Onset: 05-03-2023 04-27-2023 Episodic Septicemia (except in labor) (2 sources) Sepsis; Translations: [Sepsis, unspecified organism] Episodic Sprains and strains (1 source) Strain of muscle and/or tendon of thigh; Translations: [Strain of unspecified quadriceps muscle, fascia and tendon, initial encounter] Episodic Unclassified (1 source) Unknown / UNK(Unknown) Onset: 11-02-2017 Urinary tract infections (9 sources) Pyelonephritis; Translations: [Tubulo-interstitial nephritis, not specified as acute or chronic] Episodic Past or Other Problems Problem Classification Problem Date Documented Da te Episodic/Chronic Unclassified (1 source) TO EST Onset: 11-02-2017 Results Test Name Value Interpretation Reference Range Facility .Auto Diffon 06-25-2024 Basophil, Absolute 0.1 10 3/mcL Normal 0.0-0.2 [facility] Comment on above: Performed By: #### G REGINA MENDES, ANEU, LIP, CBC, CMP, ADIFF #### [address] [address] Basophils/100 WBC (Bld) 0.5 % Normal 0.0-2.5 [facility] Comment on above: Performed By: #### REGINA WILLOUGHBY, ANEU, LIP, CBC, CMP, ADIFF #### [address] [address] Eosinophil, Absolute 0.0 10 3/mcL Normal 0.0-0.7 [facility] Comment on above: Performed By: #### REGINA WILLOUGHBY, ANEU, LIP, CBC, CMP, ADIFF #### [address] [address] Eosinophils/100 WBC (Bld) 0.0 % Normal 0.0-7.0 [facility] Comment on above: Performed By: #### G REGINA MENDES, ANEU, LIP, CBC, CMP, ADIFF #### [address] [address] Lymphocyte, Absolute 1.8 10 3/mcL Normal 0.9-4.3 [facility] Comment on above: Performed By: #### REGINA WILLOUGHBY, ANEU, LIP, CBC, CMP, ADIFF #### [address] [address] Lymphocytes/100 WBC (Bld) 15.7 % Low 20.0-40.0 [facility] Comment on above: Performed By: #### REGINA WILLOUGHBY, ANEU, LIP, CBC, CMP, ADIFF #### [address] [address] Monocyte, Absolute 0.6 10 3/mcL Normal 0.1-1.4 [facility] Comment on above: Performed By: #### REGINA WILLOUGHBY, ANEU, LIP, CBC, CMP, ADIFF #### [address] [address] Monocytes/100 WBC (Bld) 5.2 % Normal 2.0-13.0 [facility] Comment on above: Performed By: #### G , W, ANEU, LIP, CBC, CMP, ADIFF #### [address] [place], [place] [address] Neutrophils/100 WBC (Bld) 78.6 % High 50.0-75.0 [facility] Comment on above: Performed By: #### G , REGINA, ANEU, LIP, CBC, CMP, ADIFF #### [address] [address] .GFRon 06-25-2024 Estimated Glomerular Filtration Rate 75 ml/min/1.73sqm Normal [facility] Comment on above: Result Comment: Stages of Chronic Kidney Disease (CKD) Stage Description eGFR(ml/min/1.73 sq.m.) CKD 1 Normal kidney function or >=90 normal kindney function with possible kidney damage (ex. Proteinuria) CKD 2 Kidney damage with mild loss 60-89 of kidney function CKD 3a Mild to moderate loss of kidney 45-59 function CKD 3b Moderate to severe loss of 30-44 of kindey function CKD 4 Severe loss of kidney function 15-29 CKD 5 Kidney failure <15 Note: (go live 2024) the eGFR calculation was updated to the 2020 CKD-EPI creatinine equation without a race factor to calculate the eGFR results. Performed By: #### G , REGINA, ANEU, LIP, CBC, CMP, ADIFF #### [address] [place], [place] [address] .MDWon 06-25-2024 Monocyte Distribution Width 17.47 Normal 0.00-20.00 [facility] Comment on above: Result Comment: For ED adult patients suspected of sepsis, MDW<=20.0 does not rule out sepsis or risk of sepsis Performed By: #### G , W, ANEU, LIP, CBC, CMP, ADIFF #### [address] [place], [place] [address] .NEUABSon 06-25-2024 Neutrophil, Absolute 9.2 10 3/mcL High 2.3-8.1 [facility] Comment on above: Performed By: #### G REGINA MENDES, ANEU, LIP, CBC, CMP, ADIFF #### [place] [address] CBCon 06-25-2024 Erythrocyte distribution width (RBC) [Ratio] 13.2 % Normal 11.5-15.5 [facility] Comment on above: Performed By: #### G REGINA MENDES, ANEU, LIP, CBC, CMP, ADIFF #### [place] [address] Hematocrit (Bld) [Volume fraction] 40.7 % Normal 34.0-46.0 [facility] Comment on above: Performed By: #### G REGINA MENDES, ANEU, LIP, CBC, CMP, ADIFF #### [place] [address] Hgb 13.9 G/dL Normal 12.0-16.0 [facility] Comment on above: Performed By: #### G REGINA MENDES, ANEU, LIP, CBC, CMP, ADIFF #### [place] [address] MCH (RBC) [Entitic mass] 30.0 pg Normal 27.0-33.0 [facility] Comment on above: Performed By: #### G REGINA MENDES, ANEU, LIP, CBC, CMP, ADIFF #### [place] [address] MCHC 34.2 G/dL Normal 32.0-36.0 [facility] Comment on above: Performed By: #### G REGINA MENDES, ANEU, LIP, CBC, CMP, ADIFF #### [place] [address] MCV (RBC) [Entitic vol] 87.7 fL Normal 80.0-99.0 [facility] Comment on above: Performed By: #### REGINA WILLOUGHBY, ANEU, LIP, CBC, CMP, ADIFF #### [address] [address] Platelet 251 10 3/mcL Normal 150-450 [facility] Comment on above: Performed By: #### G REGINA MENDES, ANEU, LIP, CBC, CMP, ADIFF #### [address] [address] Platelet mean volume (Bld) [Entitic vol] 8.6 fL Normal 6.6-10.5 [facility] Comment on above: Performed By: #### G REGINA MENDES, ANEU, LIP, CBC, CMP, ADIFF #### [address] [address] RBC 4.65 10 6/mcL Normal 4.10-5.30 [facility] Comment on above: Performed By: #### G REGINA MENDES, ANEU, LIP, CBC, CMP, ADIFF #### [address] [address] WBC 11.7 10 3/mcL High 4.5-10.8 [facility] Comment on above: Performed By: #### G REGINA MENDES, ANEU, LIP, CBC, CMP, ADIFF #### [address] [address] CMPon 06-25-2024 Albumin Level 4.3 G/dL Normal 3.5-5.0 [facility] Comment on above: Performed By: #### REGINA WILLOUGHBY, ANEU, LIP, CBC, CMP, ADIFF #### [address] [address] Albumin/Globulin [Mass ratio] 1.4 {ratio} Normal 1.1-2.5 [facility] Comment on above: Performed By: #### REGINA WILLOUGHBY, ANEU, LIP, CBC, CMP, ADIFF #### [address] [address] ALP [Catalytic activity/Vol] 80 U/L Normal 40-135 [facility] Comment on above: Performed By: #### REGINA WILLOUGHBY, ANEU, LIP, CBC, CMP, ADIFF #### [address] [address] ALT [Catalytic activity/Vol] 20 U/L Normal 14-59 [facility] Comment on above: Performed By: #### G REGINA MENDES, ANEU, LIP, CBC, CMP, ADIFF #### [address] [address] AST [Catalytic activity/Vol] 21 U/L Normal 10-40 [facility] Comment on above: Performed By: #### G REGINA MENDES, ANEU, LIP, CBC, CMP, ADIFF #### [address] [address] Bili Total 0.8 mg/dL Normal 0.2-1.0 [facility] Comment on above: Result Comment: Use of this assay is not recommended for patients undergoing treatment with eltrombopag due to the potential for falsely elevated results. Performed By: #### REGINA WILLOUGHBY, HOMA, LIP, CBC, CMP, ADIFF #### [address] [address] BUN/Creatinine Ratio 10 ratio Normal 7-27 [facility] Comment on above: Performed By: #### G REGINA MENDES, ANEU, LIP, CBC, CMP, ADIFF #### [address] [address] Calcium [Mass/Vol] 9.4 mg/dL Normal 8.4-10.2 [facility] Comment on above: Performed By: #### REGINA WILLOUGHBY, ANEU, LIP, CBC, CMP, ADIFF #### [address] [address] Chloride [Moles/Vol] 103 mmol/L Normal 98-107 [facility] Comment on above: Performed By: #### G REGINA MENDES, ANEU, LIP, CBC, CMP, ADIFF #### [address] [address] CO2 [Moles/Vol] 24 mmol/L Normal 22-29 [facility] Comment on above: Performed By: #### G REGINA MENDES, ANEU, LIP, CBC, CMP, ADIFF #### [address] [address] Creatinine [Mass/Vol] 1.02 mg/dL Normal 0.55-1.[address] [facility] Comment on above: Result Comment: Test ing performed on Siemens Dimension EXL analyzer using a modified kinetic Deejay technique. Performed By: #### G REGINA MENDES, ANEU, LIP, CBC, CMP, ADIFF #### [address] [address] Electrolyte Balance 7.0 mEq/L Normal 4.0-15.0 [facility] Comment on above: Performed By: #### G REGINA MENDES, ANEU, LIP, CBC, CMP, ADIFF #### [address] [address] Globulin 3.1 G/dL Normal 1.5-3.8 [facility] Comment on above: Performed By: #### G REGINA MENDES, ANEU, LIP, CBC, CMP, ADIFF #### [address] [address] Glucose [Mass/Vol] 95 mg/dL Normal 70-105 [facility] Comment on above: Performed By: #### REGINA WILLOUGHBY, ANEU, LIP, CBC, CMP, ADIFF #### [address] [address] Potassium [Moles/Vol] 3.7 mmol/L Normal 3.5-5.[address] [facility] Comment on above: Performed By: #### REGINA WILLOUGHBY, ANEU, LIP, CBC, CMP, ADIFF #### [address] [address] Sodium [Moles/Vol] 134 mmol/L Low 136-145 [facility] Comment on above: Performed By: #### REGINA WILLOUGHBY, ANEU, LIP, CBC, CMP, ADIFF #### [address] [address] Total Protein 7.4 G/dL Normal 6.4-8.2 [facility] Comment on above: Performed By: #### G , REGINA, ANEU, LIP, CBC, CMP, ADIFF #### [address] [place], [place] [address] Urea nitrogen [Mass/Vol] 10 mg/dL Normal 7-18 [facility] Comment on above: Performed By: #### G , REGINA, ANEU, LIP, CBC, CMP, ADIFF #### [place] [facility] [address] [place], [place] [address] LABORATORYOrdered By: SYSTEM SYSTEM on 06-25-2024 Albumin BCP dye [Mass/Vol] 4.3 G/dL Normal 3.5 - 5.0 G/dL AO ADM SS Albumin/Globulin [Mass ratio] 1.4 {ratio} Normal 1.1 - 2.5 ratio AO ADM SS ALP [Catalytic activity/Vol] 80 U/L Normal 40 - 135 U/L AO ADM SS ALT With P-5'-P [Catalytic activity/Vol] 20 U/L Normal 14 - 59 U/L AO ADM SS AST With P-5'-P [Catalytic activity/Vol] 21 U/L Normal 10 - 40 U/L AO ADM SS Basophils (Bld) [#/Vol] 0.1 103/mcL Normal 0.0 - 0.2 10^3/mcL AO Workflow SS Basophils/100 WBC (Bld) 0.5 % Normal 0.0 - 2.5 % AO Workflow SS Bilirubin [Mass/Vol] 0.8 mg/dL Normal 0.2 - 1 .0 mg/dL AO ADM SS Comment on above: Interpretive Data: U se of this assay is not recommended for patients undergoing treatment with eltrombopag due to the potential for falsely elevated results. Calcium [Mass/Vol] 9.4 mg/dL Normal 8.4 - 10. 2 mg/dL AO ADM SS Chloride [Moles/Vol] 103 mmol/L Normal 98 - 10 7 mmol/L AO ADM SS CO2 [Moles/Vol] 24 mmol/L Normal 22 - 29 mmol/L AO ADM SS Creatinine [Mass/Vol] 1.02 mg/dL Normal 0.55 - 1.02 mg/dL AO ADM SS Comment on above: Interpretive Data: T esting performed on [employer] Dimension EXL analyzer using a modified kinetic Deejay technique. Electrolyte Balance 7.0 mEq/L Normal 4.0 - 15 .0 mEq/L AO ADM SS Eosinophil, Absolute 0.0 103/mcL Normal 0.0 - 0 .7 10^3/mcL AO Workflow SS Eosinophils/100 WBC (Bld) 0.0 % Normal 0.0 - 7.0 % AO Workflow SS Erythrocyte distribution width (RBC) [Ratio] 13.2 % Normal 11.5 - 15.5 % AO Workflow SS Estimated Glomerular Filtration Rate 75 ml/min/1.73sqm Invalid Interpretation Code AO Chemistry S Comment on above: Interpretive Data: Stages of Chronic Kidney Disease (CKD) Stage Description eGFR(ml/min/1.73 sq.m.) CKD 1 Normal kidney function or >=90 normal kindney function with possible kidney damage (ex. Proteinuria) CKD 2 Kidney damage with mild loss 60-89 of kidney function CKD 3a Mild to moderate loss of kidney 45-59 function CKD 3b Moderate to severe loss of 30-44 of kindey function CKD 4 Severe loss of kidney function 15-29 CKD 5 Kidney failure <15 Note: (go live 2024) the eGFR calculation was updated to the 2020 CKD-EPI creatinine equation without a race factor to calculate the eGFR results. Globulin 3.1 G/dL Normal 1.5 - 3.8 G/dL AO ADM SS Glucose [Mass/Vol] 95 mg/dL Normal 70 - 105 mg/dL AO ADM SS Hematocrit (Bld) [Volume fraction] 40.7 % Normal 34.0 - 46.0 % AO Workflow SS Hemoglobin (Bld) [Mass/Vol] 13.9 G/dL Normal 12.0 - 16.0 G/dL AO Workflow SS Lipase [Catalytic activity/Vol] 20 U/L Normal 16 - 77 U/L AO ADM SS Lymphocytes (Bld) [#/Vol] 1.8 103/mcL Normal 0.9 - 4.3 10^3/mcL AO Workflow SS Lymphocytes/100 WBC (Bld) 15.7 % Low 20.0 - 40.0 % AO Workflow SS MCH (RBC) [Entitic mass] 30.0 pg Normal 27.0 - 33.0 pg AO Workflow SS MCHC 34.2 G/dL Normal 32.0 - 36.0 G/dL AO Workflow SS MCV (RBC) [Entitic vol] 87.7 fL Normal 80.0 - 99.0 fL AO Workflow SS Monocyte distribution width Auto (Bld) [Entitic vol] 17.47 1 Normal 0.00 - 20.00 AO Workflow SS Comment on above: Result Comment: For ED adult patients suspected of sepsis, MDW<=20.0 does not rule out sepsis or risk of sepsis Monocytes (Bld) [#/Vol] 0.6 103/mcL Normal 0.1 - 1.4 10^3/mcL AO Workflow SS Monocytes/100 WBC (Bld) 5.2 % Normal 2.0 - 13.0 % AO Workflow SS Neutrophils (Bld) [#/Vol] 9.2 103/mcL High 2.3 - 8.1 10^3/mcL AO Workflow SS Neutrophils/100 WBC (Bld) 78.6 % High 50.0 - 75.0 % AO Workflow SS Platelet mean volume (Bld) [Entitic vol] 8.6 fL Normal 6.6 - 10.5 fL AO Workflow SS Platelets (Bld) [#/Vol] 251 103/mcL Normal 150 - 450 10^3/mcL AO Workflow SS Potassium [Moles/Vol] 3.7 mmol/L Normal 3.5 - 5.1 mmol/L AO ADM SS Protein [Mass/Vol] 7.4 G/dL Normal 6.4 - 8.2 G/dL AO ADM SS RBC (Bld) [#/Vol] 4.65 106/mcL Normal 4.10 - 5.3 0 10^6/mcL AO Workflow SS Sodium [Moles/Vol] 134 mmol/L Low 136 - 145 mmol/L AO ADM SS Urea nitrogen [Mass/Vol] 10 mg/dL Normal 7 - 18 mg/dL AO ADM SS Urea nitrogen/Creatinine [Mass ratio] 10 ratio Normal 7 - 27 ratio AO ADM SS WBC (Bld) [#/Vol] 11.7 103/mcL High 4.5 - 10.8 10^3/mcL AO Workflow SS LABORATORYOrdered By: Adelaida Winters on 06-25-2024 Appearance (U) Clear (06/25/24 12:16 AM) Normal Clear AO Auto Urine SS Bilirubin Ql (U) Negative (06/25/24 12:16 AM) Normal Negative AO Auto Urine SS Color (U) Yellow (06/25/24 12:16 AM) Normal AO Auto Urine SS Glucose Test strip (U) [Mass/Vol] Negative Normal Negative AO Auto Urine SS HCG ( test) Ql Negative (06/25/24 12:16 AM) Normal AO Manual Urine SS Hemoglobin Auto test strip (U) [Mass/Vol] Negative (06/25/24 12:16 AM) Normal Negative AO Auto Urine SS Ketones Ql (U) >=160 mg/dL Invalid Interpretation Code Negative AO Auto Urine SS test (u) int Not detected Invalid Interpretation Code AO Manual Urine SS UA Leuk Est Negative (06/25/24 12:16 AM) Normal Negative AO Auto Urine SS UA Nitrite Negative (06/25/24 12:16 AM) Normal Negative AO Auto Urine SS UA pH 5.5 (06/25/24 12:16 AM) Normal 5.0 - 8.0 AO Auto Urine SS UA Protein Negative Normal Negative AO Auto Urine SS UA Spec Grav >=1.030 *ABN* (06/25/24 12:16 AM) Invalid Interpretation Code 1.015-1.025 AO Auto Urine SS UA Specimen Type Clean Catch (06/25/24 12:16 AM) Normal AO Auto Urine SS UA Urobilinogen 0.2 E.U./dL Normal 0.2-1.0 AO Auto Urine SS LIPon 06-25-2024 Lipase Level 20 U/L Normal 16-77 [facility] Comment on above: Performed By: #### G FR, MDW, ANEU, LIP, CBC, CMP, ADIFF #### [address] [address] PREGUon 06-25-2024 HCG ( test) Ql (U) Negative Normal [facility] Comment on above: Performed By: #### P REGU, UA #### [address] [address] test (u) int Not detected Invalid Interpretation Code [facility] Comment on above: Performed By: #### P REGU, UA #### [address] [address] UAon 06-25-2024 Color (U) Yellow Normal [facility] Comment on above: Performed By: #### P REGU, UA #### [place] [address] Glucose (U) [Mass/Vol] Negative Normal Negative [facility] Comment on above: Performed By: #### P REGU, UA #### [place] [address] Ketones Ql (U) >=160 Abnormal Negative [facility] Comment on above: Performed By: #### P REGU, UA #### [place] [address] UA Appear Clear Normal Clear [facility] Comment on above: Performed By: #### P REGU, UA #### [place] [address] UA Blood Negative Normal Negative [facility] Comment on above: Performed By: #### P REGU, UA #### [place] [address] UA Leuk Est Negative Normal Negative [facility] Comment on above: Performed By: #### P REGU, UA #### [place] [address] UA Nitrite Negative Normal Negative [facility] Comment on above: Performed By: #### P REGU, UA #### [place] [address] UA pH 5.5 Normal 5.0 - 8.0 [facility] Comment on above: Performed By: #### P REGU, UA #### [place] [address] UA Protein Negative Normal Negative [facility] Comment on above: Performed By: #### P REGU, UA #### [place] [address] UA Spec Grav >=1.030 Abnormal 1.015-1.025 [facility] Comment on above: Performed By: #### P REGU, UA #### [place] [address] UA Specimen Type Clean Catch Normal [facility] Comment on above: Performed By: #### P REGU, UA #### [address] [place] [place], [place] [address] UA Urobilinogen 0.2 E.U./dL Normal 0.2-1.0 [facility] Comment on above: Performed By: #### P REGU, UA #### [place] [id number] [place], [place] [address] Urobilinogen (U) [Mass/Vol] Negative Normal Negative [facility] Comment on above: Performed By: #### P REGU, UA #### [address] [address] CDIFFAOon 05-18-2023 Clostridium difficile toxin A/B PCR Negative Normal Negative [facility] ([place]) Comment on above: Performed By: #### C DIFFAO #### [place] [address] Clostridium difficile toxin A/B PCR Int Normal [facility] ([place]) Comment on above: Result Comment: [place] C. difficile Negative result does not rule out the possibility of infection with toxigenic C. difficile. Krishan C. difficile Assay results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 Laboratory - Hematology and Cell countson 11-01-2021 Erythrocyte distribution width (RBC) [Entitic vol] 40.2 fL 35.1-43.9 [facility] Work Phone: Erythrocyte distribution width (RBC) [Ratio] 12.3 % 11.6-14.6 [facility] Work Phone: Immature granulocytes/100 WBC (Bld) 0.900 % 0.0-0.9 [facility] Work Phone: Comment on above: IG% - Immature Granu locytes (promyelocytes, myelocytes and metamyelocytes) > 1% indicates that a LEFT SHIFT is Present. MCH (RBC) [Entitic mass] 30.0 pg 27.0-32.0 [facility] Work Phone: Nucleated RBC/100 WBC (Bld) [Ratio] 0 % 0-5 [facility] Work Phone: MCHC Auto (RBC) [Mass/Vol]on 11-01-2021 MCHC (RBC) [Mass/Vol] 33.7 g/dL 32-36 [facility] Work Phone: Mucus LM Ql (Urine sed)on Mucus Ql (Urine sed) 0 SEEN /hpf [facility] Work Phone: Nitrite Test strip Ql (U)on 11-01-2021 Nitrite Ql (U) Negative Negative [facility] Work Phone: No Panel Informationon 11-01 Estimated Creatinine Clearance Calc 59.69 ml/min [facility] Work Phone: Estimated GFR (MDRD) Amer 80 mL/min >60 [facility] Work Phone: Comment on above: GFR Calc Estimated GFR (MDRD) Non-Af Amer 66 mL/min >60 [facility] Work Phone: Comment on above: Non- GFR Calc Platelets bldon 11-01-2021 Platelets (Bld) [#/Vol] 208 10*3/uL 150-450 [facility] Work Phone: Protein Test strip Ql (U)on 11-01-2021 Protein Ql (U) 100 mg/dl Negative [facility] Work Phone: Serum or plasma albumin amanda urement (mass/volume)on 11-01-2021 Albumin [Mass/Vol] 2.9 g/dL 3.2-5.0 [facility] Work Phone: Serum or plasma albumin/glob ulin mass ratioon 11-01-2021 Albumin/Globulin [Mass ratio] 0.6 {ratio} 0.9-2.4 [facility] Work Phone: Serum or plasma calcium amanda urement (mass/volume)on 11-01-2021 Calcium [Mass/Vol] 9.3 mg/dL 8.5-10.1 [facility] Work Phone: Serum or plasma creatinine m easurement (mass/volume)on 11-01-2021 Creatinine [Mass/Vol] 1.04 mg/dL 0.55-1.02 [facility] Work Phone: Comment on above: The validity of the calculated GFR & GFRAA in patients over 70 years has not been determined. Clinical correlation is essential. Serum or plasma urea nitroge n measurement (mass/volume)on 11-01-2021 Urea nitrogen [Mass/Vol] 16 mg/dL 7-18 [facility] Work Phone: Squamous epithelial cells de tection in urine sediment by light microscopyon 11-01-2021 Epithelial cells.squamous LM Ql (Urine sed) 0-5 SEEN /hpf 5-10 [facility] Work Phone: Thin prep Papanicolaou smear with manual screeningon 11-01-2021 Thin prep Papanicolaou smear with manual screening 16 U/L 15-37 [facility] Work Phone: Thin prep Papanicolaou smear with manual screening 12 5-15 [facility] Work Phone: Urine blood detectionon 10-06 RBC Ql (U) 150 /ul Negative [facility] Work Phone: RBC Ql (U) 5-10 SEEN /hpf 0-5 [facility] Work Phone: Urine clarityon 11-01-2021 Clarity (U) Sl. Cloudy Clear [facility] Work Phone: Urine color determinationon 11-01-2021 Color (U) Benita Yellow [facility] Work Phone: Urine glucose detectionon Glucose Ql (U) Normal mg/dl Normal [facility] Work Phone: Urine leukocyte esterase det ection by dipstickon 11-01-2021 Leukocyte esterase Test strip Ql (U) 100 /ul Negative [facility] Work Phone: Urine pHon 11-01-2021 pH (U) 6.0 [pH] 5.0 - 8.0 [facility] Work Phone: Urine sediment bacteria coun t by microscopy (number/high power field)on 11-01-2021 Bacteria LM.HPF (Urine sed) [#/Area] 1 /[HPF] None Seen [facility] Work Phone: Urine specific gravity measu rementon 11-01-2021 Specific gravity (U) [Rel density] 1.015 1.002-1.030 [facility] Work Phone: Urobilinogen Auto test strip Ql (U)on 11-01-2021 Urobilinogen Ql (U) 1 mg/dl Normal [facility] Work Phone: Laboratory - Chemistry and C hemistry - challengeon 10-31-2021 HCG ( test) Ql (U) Negative [facility] Work Phone: Bilirubin Ql (U) Negative [facility] Work Phone: Glucose Ql (U) Negative [facility] Work Phone: Ketones Ql (U) Moderate (40+) [facility] Work Phone: pH (U) 6.0 [pH] [facility] Work Phone: Specific gravity (U) [Rel density] 1.025 [facility] Work Phone: Urobilinogen (U) [Mass/Vol] Negative [facility] Work Phone: Laboratory - Hematology and Cell countson 10-31-2021 Hemoglobin Ql (U) Hemolyzed [facility] Work Phone: Laboratory - Specimen inform ationon 10-31-2021 Clarity (U) Cloudy [facility] Work Phone: Color (U) RED [facility] Work Phone: Laboratory - Urinalysison Nitrite Ql (U) Negative [facility] Work Phone: Protein Ql (U) Negative [facility] Work Phone: No Panel Informationon 10-31 Urine Leukocytes Positive [facility] Work Phone: Urine Non-Hemolyzed Blood Large [facility] Work Phone: Culture, urine Bacteria identified Cx Nom (U) Escherichia coli [facility] Work Phone: Bacteria identified Cx Nom (U) 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 [facility] Work Phone: Vital Signs Date Time Vital Sign Value Performing Clinician Facility 06-25-2024 01:04-0500 Diastolic Blood Pressure Non-Invasive 72 mm[Hg] DR JACOB CRUZ MD [facility] 06-25-2024 01:04-0500 Heart rate 80 /min DR JACOB CRUZ MD [facility] 06-25-2024 01:04-0500 Respiratory rate 16 /min DR JACOB CRUZ MD [facility] 06-25-2024 01:04-0500 Systolic Blood Pressure Non-Invasive 118 mm[Hg] DR JACOB CRUZ MD [facility] 06-24-2024 22:57-0500 Body temperature 97.52 [degF] DR JACOB CRUZ MD [facility] 06-24-2024 22:57-0500 Diastolic Blood Pressure Non-Invasive 81 mm[Hg] DR JACOB CRUZ MD [facility] 06-24-2024 22:57-0500 Heart rate 80 /min DR JACOB CRUZ MD [facility] 06-24-2024 22:57-0500 Respiratory rate 16 /min DR JACOB CRUZ MD [facility] 06-24-2024 22:57-0500 Systolic Blood Pressure Non-Invasive 125 mm[Hg] DR JACOB CRUZ MD [facility] 05-17-2023 15:07-0500 Body temperature 98.06 [degF] JB JACK MD [facility] 05-17-2023 15:07-0500 Body weight 70 kg JB JACK MD [facility] 05-17-2023 15:07-0500 Diastolic Blood Pressure Non-Invasive 78 mm[Hg] JB JACK MD [facility] 05-17-2023 15:07-0500 Heart rate 80 /min JB JACK MD [facility] 05-17-2023 15:07-0500 Respiratory rate 18 /min JB JACK MD [facility] 05-17-2023 15:07-0500 Systolic Blood Pressure Non-Invasive 138 mm[Hg] JB JACK MD [facility] 04-27-2023 14:25-0500 Body temperature 98.6 [degF] No Primary Care Physician [facility] 04-27-2023 14:25-0500 Diastolic blood pressure 82 mm[Hg] No Primary Care Physician [facility] 04-27-2023 14:25-0500 Heart rate 101 /min No Primary Care Physician [facility] 04-27-2023 14:25-0500 Respiratory rate 17 /min No Primary Care Physician [facility] 04-27-2023 14:25-0500 SaO2% (BldA) [Mass fraction] 99 % No Primary Care Physician [facility] 04-27-2023 14:25-0500 Systolic blood pressure 116 mm[Hg] No Primary Care Physician [facility] 04-27-2023 14:14-0500 Body height 154.99 cm No Primary Care Physician [facility] 04-19-2023 14:05-0500 Body temperature 98.7 [degF] No Primary Care Physician [facility] 04-19-2023 14:05-0500 Diastolic blood pressure 84 mm[Hg] No Primary Care Physician [facility] 04-19-2023 14:05-0500 Heart rate 87 /min No Primary Care Physician [facility] 04-19-2023 14:05-0500 Respiratory rate 12 /min No Primary Care Physician [facility] 04-19-2023 14:05-0500 SaO2% (BldA) [Mass fraction] 98 % No Primary Care Physician [facility] 04-19-2023 14:05-0500 Systolic blood pressure 123 mm[Hg] No Primary Care Physician [facility] 04-19-2023 13:50-0500 Body height 154.99 cm No Primary Care Physician [facility] 11-04-2021 09:23-0400 Body temperature 98.9 [degF] Dr. Tristen Cortez Work Phone: [facility] Work Phone: 11-04-2021 09:23-0400 Diastolic blood pressure 86 mm[Hg] Dr. Tristen Cortez Work Phone: [facility] Work Phone: 11-04-2021 09:23-0400 Heart rate 100 /min Dr. Tristen Cortez Work Phone: [facility] Work Phone: 11-04-2021 09:23-0400 Respiratory rate 18 /min Dr. Tristen Cortez Work Phone: [facility] Work Phone: 11-04-2021 09:23-0400 SaO2% (BldA) [Mass fraction] 98 % Dr. Tristen Cortez Work Phone: [facility] Work Phone: 11-04-2021 09:23-0400 Systolic blood pressure 121 mm[Hg] Dr. Tristen Cortez Work Phone: [facility] Work Phone: 11-02-2021 11:25-0400 Body height 154.[address] Tristen Cortez Work Phone: [facility] Work Phone: 11-02-2021 11:25-0400 Body weight 56.[address] Tristen Cortez Work Phone: [facility] Work Phone: 11-02-2021 00:07-0400 Body mass index (BMI) [Ratio] 23.4 kg/m2 Dr. Tristen Cortez Work Phone: [facility] Work Phone: 11-01-2021 22:23-0400 Body temperature 98.3 [degF] Dr. Tristen Cortez Work Phone: [facility] Work Phone: 11-01-2021 22:23-0400 Diastolic blood pressure 82 mm[Hg] Dr. Tristen Cortez Work Phone: [facility] Work Phone: 11-01-2021 22:23-0400 Heart rate 109 /min Dr. Tristen Cortez Work Phone: [facility] Work Phone: 11-01-2021 22:23-0400 Respiratory rate 15 /min Dr. Tristen Cortez Work Phone: [facility] Work Phone: 11-01-2021 22:23-0400 Systolic blood pressure 119 mm[Hg] Dr. Tristen Cortez Work Phone: [facility] Work Phone: 11-01-2021 22:11-0400 SaO2% (BldA) [Mass fraction] 97 % Dr. Tristen Cortez Work Phone: [facility] Work Phone: 11-01-2021 18:19-0400 Body height 154.[address] Tristen Cortez Work Phone: [facility] Work Phone: 11-01-2021 18:19-0400 Body mass index (BMI) [Ratio] 22.8 kg/m2 Dr. Tristen Cortez Work Phone: [facility] Work Phone: 11-01-2021 18:19-0400 Body weight [address] Tristen Cortez Work Phone: [facility] Work Phone: 10-31-2021 06:24-0400 Body temperature 98.2 [degF] Dr. Tristen Cortez Work Phone: [facility] Work Phone: 10-31-2021 06:24-0400 Diastolic blood pressure 64 mm[Hg] Dr. Tristen Cortez Work Phone: [facility] Work Phone: 10-31-2021 06:24-0400 Heart rate 153 /min Dr. Tristen Cortez Work Phone: [facility] Work Phone: 10-31-2021 06:24-0400 Respiratory rate 14 /min Dr. Tristen Cortez Work Phone: [facility] Work Phone: 10-31-2021 06:24-0400 SaO2% (BldA) [Mass fraction] 97 % Dr. Tristen Cortez Work Phone: [facility] Work Phone: 10-31-2021 06:24-0400 Systolic blood pressure 112 mm[Hg] Dr. Tristen Cortez Work Phone: [facility] Work Phone: Encounters Encounter Date Encounter Type Care Provider Facility Start: 06-24-2024 End: 06-25-2024 Emergency department patient visit DR JACOB CRUZ MD [facility] Start: 05-17-2023 End: 05-17-2023 Emergency department patient visit JB JACK MD Facility:[facility] Start: 05-17-2023 End: 05-17-2023 Emergency department patient visit JB JCAK MD [facility] Start: 04-27-2023 End: 04-27-2023 ambulatory Que BURDICK Facility:[facility] Start: 04-27-2023 End: 04-27-2023 Patient encounter procedure No Primary Care Physician [facility] Work Phone: Start: 04-27-2023 End: 04-27-2023 ambulatory No Primary Care Physician [facility] Work Phone: Start: 04-19-2023 End: 04-19-2023 ambulatory Que BURDICK Facility:[facility] Start: 04-19-2023 End: 04-19-2023 ambulatory No Primary Care Physician [facility] Work Phone: Start: 04-19-2023 End: 04-19-2023 Patient encounter procedure No Primary Care Physician [facility] Work Phone: Start: 01-21-2022 End: 01-21-[address] Tristen Cortez Work Phone: [facility] Work Phone: Start: 01-21-2022 End: 01-21-[address] Tristen Cortez Work Phone: [facility]Laboratory, Specimen Start: 11-04-2021 Non-patient / Non-visit Dr. Nam Cortez Work Phone: [facility] Start: 11-03-2021 Non-patient / Non-visit Dr. Nam Cortez Work Phone: [facility] Start: 11-02-2021 Non-patient / Non-visit Dr. Nam Cortez Work Phone: [facility] Start: 11-01-2021 Non-patient / Non-visit Dr. Nam Cortez Work Phone: [facility] Start: 11-01-2021 End: 11-04-2021 Evaluation and management of inpatient Dr. Tristen Cortez Work Phone: [facility] 3 Start: 10-31-2021 End: 10-31-[address] Tristen Cortez Work Phone: [facility] Start: 10-31-2021 End: 10-31-[address] Tristen Cortez Work Phone: [facility] Start: 12-14-2017 Patient encounter Cintiaaugustine Phillips ity:[facility] Start: 11-02-2017 Patient encounter Cintia Hugo Facil ity:[facility] Procedures Date Procedure Procedure Detail Performing Clinician Start: 04-27-2023 Diagnostic radiograp hy of finger No Primary Care Physician Start: 04-19-2023 Diagnostic radiograp hy of finger No Primary Care Physician Start: 11-04-[address] Nam Cortez Work Phone: Start: 11-01-2021 Computed tomography of abdomen and pelvis with intravenous contrast Dr. Tristen Cortez Work Phone: Appendectomy JB PERALTA MD Bacteria identified in Blood by Culture Dr. Tristen Cortez Work Phone: Urine culture Dr. Tristen milligan Work Phone: Plan of Treatment Date Care Activity Detail Author Start: 11-04-2021 Patient discharge [facility] Work Phone: Start: 11-04-2021 Taking nasal swab [facility] Work Phone: Start: 11-04-2021 Viral nucleic acid assay [facility] Work Phone: Start: 11-04-2021 [facility] Work Phone: Start: 11-02-2021 Consultation [facility] Work Phone: Start: 11-02-2021 Following clinical p athway protocol [facility] Work Phone: Start: 11-02-2021 Patient referral to dietitian [facility] Work Phone: Start: 11-01-2021 Assessment of risk o f venous thromboembolism [facility] Work Phone: Start: 11-01-2021 Incentive spirometry [facility] Work Phone: Start: 11-01-2021 Inhalation therapy procedure [facility] Work Phone: Start: 11-01-2021 Insertion of cathete r into peripheral vein [facility] Work Phone: Start: 11-01-2021 Introduction of urin miquel catheter [facility] Work Phone: Start: 11-01-2021 Measuring intake and output [facility] Work Phone: Start: 11-01-2021 Oxygen therapy [facility] Work Phone: Start: 11-01-2021 Providing care accor ding to standard [facility] Work Phone: Start: 11-01-2021 Provision of activit y privileges [facility] Work Phone: Start: 11-01-2021 [facility] Work Phone: Start: 11-01-2021 Verification routine [facility] Work Phone: Start: 11-01-2021 Admission procedure [facility] Work Phone: Start: 11-01-2021 End: 11-01-2021 Blood culture [facility] Work Phone: Start: 11-01-2021 [facility] Work Phone: Start: 10-31-2021 [facility] Work Phone: Bacteria identified in Blood by Culture Blood Culture [facility] Work Phone: Bacteria identified in Urine by Culture Urine Culture [facility] Work Phone: Blood culture [facility] Work Phone: Patient referral [facility] Work Phone: Urine culture Urine Culture [facility] Work Phone: [facility] Work Phone: Payers Date Payer Category Payer Unknown [id number] 2023 Self-pay [id number] 2023 Unknown [id number] 2017 Unknown [id number] 1991 Unknown [id number] 1991 Unknown [id number] Unknown [id number] Unknown [id number] Unknown [id number] Unknown [id number] Unknown [id number] Social History Date Type Detail Facility [facility] Work Phone: Start: 11-01-2021 End: 04-27-2023 Tobacco smoking status FLIS Unknown if ever smoked [facility] Start: 1990 Sex Assigned At Female [facility] Start: 05-17-2023 Tobacco smoking status Never s moked tobacco (finding) [facility] Sexual [facility] Start: 07-02-2019 Sex Female (finding) [facility] Goals Date Patient Goal Desired Activity /State Functional Status Date Assessment Result Facility 06-25-2024 Functional Status ID band on, Call device within reach, Bed in low position [facility] 11-04-2021 Functional status Patient Activi ty Ambulates;Up ad galo [facility] Work Phone: 11-04-2021 Functional status Independent [facility] Work Phone: 11-02-2021 Functional status Tolerates Activity Fair [facility] Work Phone: Mental Status Date Assessment Result Facility 06-25-2024 Mental Status Oriented x 4 [facility] 11-04-2021 Cognitive function Appropriate;Austin carlos [facility] Work Phone: 11-03-2021 Cognitive function Voice/Name;Touch/Layla brito [facility] Work Phone: 11-01-2021 Cognitive function Level Of Cons ciousness Awake;Alert;Appropriate;Follow s Commands [facility] Work Phone: Clinical Notes 05-17-2023 to 06-25-2024 Note Date & Type Note Facility 06-25-2024 Hospital Discharge instructions Patient Education 06/25/2024 00:43:22 Diarrhea, Unknown Cause Diarrhea with Uncertain Cause (Adult) Diarrhea is when stools are loose and watery. This can be caused by: Viral infections Bacterial infections Food poisoning Parasites Irritable bowel syndrome (IBS) Inflammatory bowel diseases such as ulcerative colitis, Crohn's disease, and celiac disease Food intolerance, such as to lactose, the sugar found in milk and milk products Reaction to medicines like antibiotics, laxatives, cancer drugs, and antacids Along with diarrhea, you may also have: Abdominal pain and cramping Nausea and vomiting Loss of bowel control Fever and chills Bloody stools In some cases, antibiotics may help to treat diarrhea. You may have a stool sample test. This is done to see what is causing your diarrhea, and if antibiotics will help treat it. The results of a stool sample test may take up to 2 days. The healthcare provider may not give you antibiotics until he or she has the stool test results. Diarrhea can cause dehydration. This is the loss of too much water and other fluids from the body. When this occurs, body fluid must be replaced. This can be done with oral rehydration solutions. Oral rehydration solutions are available at drugstores and grocery stores without a prescription. Sports drinks are not the best choice if you are very dehydrated. They have too much sugar and not enough electrolytes. Home care Follow all instructions given by your healthcare provider. Rest at home for the next 24 hours, or until you feel better. Avoid caffeine, tobacco, and alcohol. These can make diarrhea, cramping, and pain worse. If taking medicines: Tbtc-ucw-cimtqmv nausea and diarrhea medicines are generally OK unless you experience fever or blood stool. Check with your doctor first in those circumstances. You may use acetaminophen or NSAID medicines like ibuprofen or naproxen to reduce pain and fever. Don t use these if you have chronic liver or kidney disease, or ever had a stomach ulcer or gastrointestinal bleeding. Don't use NSAID medicines if you are already taking one for another condition (like arthritis) or are on daily aspirin therapy (such as for heart disease or after a stroke). Talk with your healthcare provider first. If antibiotics were prescribed, be sure you take them until they are finished. Don t stop taking them even when you feel better. Antibiotics must be taken as a full course. To prevent the spread of illness: Remember that washing with soap and water and using alcohol-based medical technicians is the best way to prevent the spread of infection. Dry your hands with a single use towel (like a paper towel). Clean the toilet after each use. Wash your hands before eating. Wash your hands before and after preparing food. Keep in mind that people with diarrhea or vomiting should not prepare food for others. Wash your hands after using cutting boards, countertops, and knives that have been in contact with raw foods. Wash and then peel fruits and vegetables. Keep uncooked meats away from cooked and lzxgl-ss-rrz foods. Use a food thermometer when cooking. Cook poultry to at least 165 F (74 C). Cook ground meat (beef, veal, pork, neely) to at least 160 F (71 C). Cook fresh beef, veal, neely, and pork to at least 145 F (63 C). Don t eat raw or undercooked eggs (poached or mary side up), poultry, meat, or unpasteurized milk and juices. Food and drinks The main goal while treating vomiting or diarrhea is to prevent dehydration. This is done by taking small amounts of liquids often. Keep in mind that liquids are more important than food right now. Drink only small amounts of liquids at a time. Don t force yourself to eat, especially if you are having cramping, vomiting, or diarrhea. Don t eat large amounts at a time, even if you are hungry. If you eat, avoid fatty, greasy, spicy, or fried foods. Don t eat dairy foods or drink milk if you have diarrhea. These can make diarrhea worse. During the first 24 hours you can try: Oral rehydration solutions. Sports drinks may be used if you are not too dehydrated and are otherwise healthy. Soft drinks without caffeine Davion katiana Water (plain or flavored) Decaf tea or coffee Clear broth, consomm , or bouillon Gelatin, popsicles, or frozen fruit juice bars The second 24 hours, if you are feeling better, you can add: Hot cereal, plain toast, bread, rolls, or crackers Plain noodles, rice, mashed potatoes, chicken noodle soup, or rice soup Unsweetened canned fruit (no pineapple) Bananas As you recover: Limit fat intake to less than 15 grams per day. Don t eat margarine, butter, oils, mayonnaise, sauces, gravies, fried foods, peanut butter, meat, poultry, or fish. Limit fiber. Don t eat raw or cooked vegetables, fresh fruits except bananas, or bran cereals. Limit caffeine and chocolate. Limit dairy. Don t use spices or seasonings except salt. Go back to your normal diet over time, as you feel better and your symptoms improve. If the symptoms come back, go back to a simple diet or clear liquids. Follow-up care Follow up with your healthcare provider, or as advised. If a stool sample was taken or cultures were done, call the healthcare provider for the results as instructed. Call 911 Call 911 if you have any of these symptoms: Trouble breathing Confusion Extreme drowsiness or trouble walking Loss of consciousness Rapid heart rate Chest pain Stiff neck Seizure When to seek medical advice Call your healthcare provider right away if any of these occur: Abdominal pain that gets worse Constant lower right abdominal pain Continued vomiting and inability to keep liquids down Diarrhea more than 5 times a day Blood in vomit or stool Dark urine or no urine for 8 hours, dry mouth and tongue, tiredness, weakness, or dizziness Drowsiness New rash You don t get better in 2 to 3 days Fever of 100.4 F (38 C) or higher, or as directed by your healthcare provider [id number] [employer]. [address] [place] [id number]. All rights reserved. This information is not intended as a substitute for professional medical care. Always follow your healthcare professional's instructions. 06/25/2024 00:43:22 Diet for Vomiting or Diarrhea (Adult) Diet for Vomiting or Diarrhea (Adult) Your symptoms may return or get worse after eating certain foods listed below. If this happens, stop eating these foods until your symptoms ease and you feel better. Once the vomiting stops, follow the steps below. During the first 12 to 24 hours During the first 12 to 24 hours, follow this diet: Drinks. Plain water, sport drinks like electrolyte solutions, soft drinks without caffeine, mineral water (plain or flavored), clear fruit juices, and decaffeinated tea and coffee. Soups. Clear broth. Desserts. Plain gelatin, popsicles, and fruit juice bars. As you feel better, you may add 6 to 8 ounces of yogurt per day. If you have diarrhea, don't have foods or drinks that contain sugar, high-fructose corn syrup, or sugar alcohols. During the next 24 hours During the next 24 hours you may add the following to the above: Hot cereal, plain toast, bread, rolls, and crackers Plain noodles, rice, mashed potatoes, and chicken noodle or rice soup Unsweetened canned fruit (but not pineapple) and bananas Don't eat more than 15 grams of fat a day. Do this by staying away from margarine, butter, oils, mayonnaise, sauces, gravies, fried foods, peanut butter, meat, poultry, and fish. Don't eat much fiber. Stay away from raw or cooked vegetables, fresh fruits (except bananas), and bran cereals. Limit how much caffeine and chocolate you have. Do not use any spices or seasonings except salt. During the next 24 hours Slowly go back to your normal diet, as you feel better and your symptoms ease. [id number] [employer]. [address] [place] [address]. All rights reserved. This information is not intended as a substitute for professional medical care. Always follow your healthcare professional's instructions. Follow Up Care 06/24/2024 22:51:11 With:HASEEB PETERSEN Address: [address] [address] [phone] Business (1) When:5-7 days Comments:Drink plenty fluids, use Zofran as needed for nausea, follow-up with your doctor or tip bander, return if any worsening or concerning symptoms. With:Follow up with primary care provider Address:Unknown When:2-4 days [facility] Maryolamide Mcdonald 06-25-2024 Note Discharge Instructions Thank you for allowing [facility] to assist you with your healthcare needs. The following is important discharge information regarding your hospital visit. Diagnosis from Today's Visit Diarrhea Nausea What to Do Next Instructions from Your Care Team No qualifying data available. Post Acute Orders No qualifying data available. You Need to Schedule the Following Appointments Follow Up with HASEEB PETERSEN When:Within 5-7 days Where:[address] [address] [phone] Business (1) Additional Information: Drink plenty fluids, use Zofran as needed for nausea, follow-up with your doctor or tip bander, return if any worsening or concerning symptoms. Follow Up with Follow up with primary care provider When:Within 2-4 days Allergies Concerta oxyCODONE Medications Please ask your primary doctor or pharmacist before taking any other medication not listed, including over the counter drugs, herbal medications, vitamins and or supplements as they may interact with your home medications. What How Much When Why Instructions Last Dose New ondansetron (ondansetron 4 mg oral tablet, disintegrating) 1 tab(s) by mouth Three (3) times a day Duration: 3 Days Printed Prescription New ondansetron (ondansetron 4 mg oral tablet, disintegrating) 1 tab(s) by mouth Three (3) times a day Duration: 3 Days Printed Prescription Unchanged acetaminophen-hydrocodone (Joanna 325- 5 mg oral tablet) 1 tab(s) by mouth Every 4 hours as needed for as needed for pain Neck muscle spasm Duration: 2 Days Unchanged cyclobenzaprine (Flexeril use cyclobenzaprine ) 10 Milligram by mouth Three (3) times a day as needed for Muscle spasm Duration: 5 Days Unchanged ibuprofen (ibuprofen 600 mg oral tablet) 1 tab(s) by mouth Four (4) times a day as needed for as needed for pain Please take this list to your next doctor s visit. Bring all medications you take, including over the counter medications, herbals and other supplements with you to your doctor s visit. Patients and families are reminded to discard old lists and to update any records with all medication providers or retail pharmacies. Education Materials Diarrhea with Uncertain Cause (Adult) Diarrhea is when stools are loose and watery. This can be caused by: Viral infections Bacterial infections Food poisoning Parasites Irritable bowel syndrome (IBS) Inflammatory bowel diseases such as ulcerative colitis, Crohn's disease, and celiac disease Food intolerance, such as to lactose, the sugar found in milk and milk products Reaction to medicines like antibiotics, laxatives, cancer drugs, and antacids Along with diarrhea, you may also have: Abdominal pain and cramping Nausea and vomiting Loss of bowel control Fever and chills Bloody stools In some cases, antibiotics may help to treat diarrhea. You may have a stool sample test. This is done to see what is causing your diarrhea, and if antibiotics will help treat it. The results of a stool sample test may take up to 2 days. The healthcare provider may not give you antibiotics until he or she has the stool test results. Diarrhea can cause dehydration. This is the loss of too much water and other fluids from the body. When this occurs, body fluid must be replaced. This can be done with oral rehydration solutions. Oral rehydration solutions are available at drugstores and grocery stores without a prescription. Sports drinks are not the best choice if you are very dehydrated. They have too much sugar and not enough electrolytes. Home care Follow all instructions given by your healthcare provider. Rest at home for the next 24 hours, or until you feel better. Avoid caffeine, tobacco, and alcohol. These can make diarrhea, cramping, and pain worse. If taking medicines: Zyjk-ppe-vnnbzkk nausea and diarrhea medicines are generally OK unless you experience fever or blood stool. Check with your doctor first in those circumstances. You may use acetaminophen or NSAID medicines like ibuprofen or naproxen to reduce pain and fever. Don t use these if you have chronic liver or kidney disease, or ever had a stomach ulcer or gastrointestinal bleeding. Don't use NSAID medicines if you are already taking one for another condition (like arthritis) or are on daily aspirin therapy (such as for heart disease or after a stroke). Talk with your healthcare provider first. If antibiotics were prescribed, be sure you take them until they are finished. Don t stop taking them even when you feel better. Antibiotics must be taken as a full course. To prevent the spread of illness: Remember that washing with soap and water and using alcohol-based medical technicians is the best way to prevent the spread of infection. Dry your hands with a single use towel (like a paper towel). Clean the toilet after each use. Wash your hands before eating. Wash your hands before and after preparing food. Keep in mind that people with diarrhea or vomiting should not prepare food for others. Wash your hands after using cutting boards, countertops, and knives that have been in contact with raw foods. Wash and then peel fruits and vegetables. Keep uncooked meats away from cooked and iayqd-ib-crv foods. Use a food thermometer when cooking. Cook poultry to at least 165 F (74 C). Cook ground meat (beef, veal, pork, neely) to at least 160 F (71 C). Cook fresh beef, veal, neely, and pork to at least 145 F (63 C). Don t eat raw or undercooked eggs (poached or mary side up), poultry, meat, or unpasteurized milk and juices. Food and drinks The main goal while treating vomiting or diarrhea is to prevent dehydration. This is done by taking small amounts of liquids often. Keep in mind that liquids are more important than food right now. Drink only small amounts of liquids at a time. Don t force yourself to eat, especially if you are having cramping, vomiting, or diarrhea. Don t eat large amounts at a time, even if you are hungry. If you eat, avoid fatty, greasy, spicy, or fried foods. Don t eat dairy foods or drink milk if you have diarrhea. These can make diarrhea worse. During the first 24 hours you can try: Oral rehydration solutions. Sports drinks may be used if you are not too dehydrated and are otherwise healthy. Soft drinks without caffeine Davion katiana Water (plain or flavored) Decaf tea or coffee Clear broth, consomm , or bouillon Gelatin, popsicles, or frozen fruit juice bars The second 24 hours, if you are feeling better, you can add: Hot cereal, plain toast, bread, rolls, or crackers Plain noodles, rice, mashed potatoes, chicken noodle soup, or rice soup Unsweetened canned fruit (no pineapple) Bananas As you recover: Limit fat intake to less than 15 grams per day. Don t eat margarine, butter, oils, mayonnaise, sauces, gravies, fried foods, peanut butter, meat, poultry, or fish. Limit fiber. Don t eat raw or cooked vegetables, fresh fruits except bananas, or bran cereals. Limit caffeine and chocolate. Limit dairy. Don t use spices or seasonings except salt. Go back to your normal diet over time, as you feel better and your symptoms improve. If the symptoms come back, go back to a simple diet or clear liquids. Follow-up care Follow up with your healthcare provider, or as advised. If a stool sample was taken or cultures were done, call the healthcare provider for the results as instructed. Call 911 Call 911 if you have any of these symptoms: Trouble breathing Confusion Extreme drowsiness or trouble walking Loss of consciousness Rapid heart rate Chest pain Stiff neck Seizure When to seek medical advice Call your healthcare provider right away if any of these occur: Abdominal pain that gets worse Constant lower right abdominal pain Continued vomiting and inability to keep liquids down Diarrhea more than 5 times a day Blood in vomit or stool Dark urine or no urine for 8 hours, dry mouth and tongue, tiredness, weakness, or dizziness Drowsiness New rash You don t get better in 2 to 3 days Fever of 100.4 F (38 C) or higher, or as directed by your healthcare provider [id number] [employer]. [address] [place] [address]. All rights reserved. This information is not intended as a substitute for professional medical care. Always follow your healthcare professional's instructions. Diet for Vomiting or Diarrhea (Adult) Your symptoms may return or get worse after eating certain foods listed below. If this happens, stop eating these foods until your symptoms ease and you feel better. Once the vomiting stops, follow the steps below. During the first 12 to 24 hours During the first 12 to 24 hours, follow this diet: Drinks. Plain water, sport drinks like electrolyte solutions, soft drinks without caffeine, mineral water (plain or flavored), clear fruit juices, and decaffeinated tea and coffee. Soups. Clear broth. Desserts. Plain gelatin, popsicles, and fruit juice bars. As you feel better, you may add 6 to 8 ounces of yogurt per day. If you have diarrhea, don't have foods or drinks that contain sugar, high-fructose corn syrup, or sugar alcohols. During the next 24 hours During the next 24 hours you may add the following to the above: Hot cereal, plain toast, bread, rolls, and crackers Plain noodles, rice, mashed potatoes, and chicken noodle or rice soup Unsweetened canned fruit (but not pineapple) and bananas Don't eat more than 15 grams of fat a day. Do this by staying away from margarine, butter, oils, mayonnaise, sauces, gravies, fried foods, peanut butter, meat, poultry, and fish. Don't eat much fiber. Stay away from raw or cooked vegetables, fresh fruits (except bananas), and bran cereals. Limit how much caffeine and chocolate you have. Do not use any spices or seasonings except salt. During the next 24 hours Slowly go back to your normal diet, as you feel better and your symptoms ease. [id number] [employer]. [address] [place] [address]. All rights reserved. This information is not intended as a substitute for professional medical care. Always follow your healthcare professional's instructions. Additional Information VACCINATE! IT SAVES LIVES! Members of the community who have not yet received the COVID-19 vaccine and would like to receive it can visit one of [facility] vaccine clinics. There are many vaccine clinic locations within the [facility]. For locations and available times, please visit [email or web address] It is important to note that some COVID mobile vaccine clinics are held outdoors and may be canceled in rainy or stormy conditions. To learn more about pediatric vaccinations (ages 5-11), we invite you to visit the [facility] webpage. [email or web address] [email or web address] To learn more about the COVID-19 vaccine, we invite you to visit the CDC website for a list of frequently asked questions. https://www.cdc.gov/coronavirus/ 2019-ncov/vaccines/faq.html [facility] Patient Portal Access Instructions: Stay connected with your healthcare team and access your personal medical information anytime with the [facility] Patient Portal. If you would like a full copy of your medical records please contact the [facility] Medical Records Department Sunday through Sunday between 8a.m. and 4:30p.m. Please follow the directions below to access the portal: 1.Access the email account you provided upon registration to the [facility].2.Look for an invitation email from [facility].3.Open the email and access the invitation link: Accept Invitation to [facility] [employer]4.Fill in the required prater to create your account. Sign into [email or web address] with your username and password that you created in the above steps to stay up to date. You can then view a summary of results, a summary of your visits, and the ability to download your summaries to your computer or send the information securely to a physician. Remember that your healthcare information is confidential, so carefully consider who you will allow to register on the [facility] Patient Portal for access to your information. You can also access the [facility] Patient Portal on the [employer]. Simply click on Health Records under Health Data and then click on the [email or web address] logo. HOW TO SAFELY DISPOSE OF PRESCRIPTION MEDICATIONS Please use one of the following methods to safely dispose of your unused medications. 1.Use a drug disposal kit: the drug disposal pouch allows you to safely discard your old and unused drugs. Ask your nurse to give you one when you are discharged.2.Visit a local take-back location: Many local pharmacies and police departments have programs that collect old and unwanted prescription drugs. Call your local pharmacy or go to http://bit.[employer]/5Q0Gv5n to find one close to you.3.Make use of household items: Use cat litter or old coffee grounds to dispose medications if other options are not available. Mix your drugs with these household products, seal them in an airtight container and throw it into the garbage. Call [facility]: [phone] to be sure your drugs can be disposed of in this way. Some medicines may require a different approach.4.Never flush your medications down the toilet. IF YOU HAVE BEEN PRESCRIBED AN OPIOIDS FOR PAIN If you have been prescribed an opioid (such as hydrocodone, oxycodone or morphine), it is critical to understand the possible side effects and risks of opioid pain medications. Even when taken as directed, opioids can have several side effects including: Tolerance, meaning you might need to take more of a medication for the same pain relief. Nausea, vomiting and/or constipation. Sleepiness, dizziness, dry mouth, confusion, depression or itching. Physical dependence, meaning you have withdrawal symptoms when a medication is stopped ? this can develop within a few days. KNOW YOUR RESPONSIBILITIES It is important to know exactly how much and how often to take the opioid pain medications you are prescribed. Never take opioids in higher amounts or more often than prescribed. Do not combine opioids with alcohol or other drugs that cause drowsiness, such as benzodiazepines, also known as benzos, including diazepam and alprazolam, muscle relaxants or sleep aids. Never sell or share prescription opioids. This is illegal. Store opioids in a secure place and out of reach of others (including children, family, friends and visitors). The last page(s) of this document has been signed and retained as a CHART COPY Signatures Patient Education Materials Diarrhea, Unknown Cause Diet for Vomiting or Diarrhea (Adult) Medication Leaflets My discharge plan and instructions have been reviewed and explained to me and I,ARLET WEBER understand my current condition and have read and understand these discharge instructions. I have received a written copy of the plan/instructions. If I have questions, I am aware that I should contact my doctor. 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 MICRO - Microbiology PROCEDURE: Shiga Toxins 1 and 2 [[id number]: [id number] ^1 *1] SOURCE: Stool BODY SITE: COLLECTED DATE/TIME: 05/18/2023 15:42 EST RECEIVED DATE/TIME: 05/18/2023 15:42 EST START DATE/TIME: 05/18/2023 15:42 EST FREE TEXT SOURCE: FINAL REPORTS Final Report [] Verified Date/Time/Personnel: 05/22/2023 13:53 EST Absence of Shiga toxin 1 Absence of Shiga toxin 2 Order Comments O1: Shiga Toxins 1 and 2 ordered by lab as part of Culture Stool Panel Interpretive Data ^1: Shiga Toxins 1 and 2 Testing performed by immunochromatography. Performing Locations *1: This test was performed at: [address], [id number] , [facility] ([place]) 05-21-2023 Note . MICRO - Microbiology PROCEDURE: Stool Culture [^1 *1] SOURCE: Stool BODY SITE: COLLECTED DATE/TIME: 05/17/2023 19:40 EST RECEIVED DATE/TIME: 05/18/2023 15:41 EST START DATE/TIME: 05/18/2023 15:42 EST FREE TEXT SOURCE: FINAL REPORTS Final Report [] Verified Date/Time/Personnel: 05/21/2023 09:21 EST Normal stool brielle present - coliforms absent. Salmonella: Negative Shigella: Negative Campylobacter: Negative PRELIMINARY REPORTS Preliminary Report [] Verified Date/Time/Personnel: 05/20/2023 11:10 EST Normal stool brielle present - coliforms absent. Negative for stool pathogens at 48 hours. Final report to follow. Interpretive Data ^1: Culture Stool Requests for alternative pathogens including Yersinia, E. coli 0157, C. difficile toxin, Rotavirus, Giardia and parasites require specific requests. Performing Locations *1: This test was performed at: [address], [address] , [facility] ([place]) 05-17-2023 Hospital Discharge instructions Patient Education 05/17/2023 15:18:03 Gastroenteritis, Viral (Adult) Viral Gastroenteritis (Adult) Gastroenteritis is commonly called the stomach flu, although it has nothing to do with influenza. It is most often caused by a virus that affects the stomach and intestinal tract and usually lasts from 2 to 7 days. Common viruses causing gastroenteritis include norovirus, rotavirus, and hepatitis A. Non-viral causes of gastroenteritis include bacteria, parasites, and toxins. The danger from repeated vomiting or diarrhea is dehydration. This is the loss of too much fluid from the body. When this occurs, body fluids must be replaced. Antibiotics don't help with this illness because it is usually viral. Simple home treatment will be helpful. Symptoms of viral gastroenteritis may include: Watery, loose stools Stomach pain or abdominal cramps Fever and chills Nausea and vomiting Loss of bowel control Headache Home care Gastroenteritis is transmitted by contact with the stool or vomit of an infected person. This can occur from person to person or from contact with a contaminated surface. Follow these guidelines when caring for yourself at home: If symptoms are severe, rest at home for the next 24 hours or until you are feeling better. Wash your hands with soap and water or use alcohol-based medical technicians to prevent the spread of infection. Wash your hands after touching anyone who is sick. Wash your hands or use alcohol-based medical technicians after using the toilet and before meals. Clean the toilet after each use. Remember these tips when preparing food: People with diarrhea should not prepare or serve food to others. When preparing foods, wash your hands before and after. Wash your hands after using cutting boards, countertops, knives, or utensils that have been in contact with raw food. Dry your hands with a single use towel. Keep uncooked meats away from cooked and muapc-rp-ywv foods. Medicine You may use acetaminophen or NSAID medicines like ibuprofen or naproxen to control fever unless another medicine was given. If you have chronic liver or kidney disease, talk with your healthcare provider before using these medicines. Also talk with your provider if you've had a stomach ulcer or gastrointestinal bleeding. Don't give aspirin to anyone under 18 years of age who is ill with a fever. It may cause severe liver damage. Don't use NSAIDS is you are already taking one for another condition (like arthritis) or are on aspirin (such as for heart disease or after a stroke). If medicine for vomiting or diarrhea are prescribed, take these only as directed. Nausea and diarrhea medicines are generally OK unless you have bleeding, fever, or severe abdominal pain. Diet Follow these guidelines for food: Water and liquids are important so you don't get dehydrated. Drink a small amount at a time or suck on ice chips if you are vomiting. If you eat, avoid fatty, greasy, spicy, or fried foods. Don't eat dairy if you have diarrhea. This can make diarrhea worse. Avoid tobacco, alcohol, and caffeine which may worsen symptoms. During the first 24 hours (the first full day), follow the diet below: Beverages. Sports drinks, soft drinks without caffeine, davion katiana, mineral water (plain or flavored), decaffeinated tea and coffee. If you are very dehydrated, sports drinks aren't a good choice. They have too much sugar and not enough electrolytes. In this case, commercially available products called oral rehydration solutions, are best. Soups. Eat clear broth, consomm , and bouillon. Desserts. Eat gelatin, ice pops, and fruit juice bars. During the next 24 hours (the second day), you may add the following to the above: Hot cereal, plain toast, bread, rolls, and crackers Plain noodles, rice, mashed potatoes, chicken noodle or rice soup Unsweetened canned fruit (avoid pineapple), bananas Limit fat intake to less than 15 grams per day. Do this by avoiding margarine, butter, oils, mayonnaise, sauces, gravies, fried foods, peanut butter, meat, poultry, and fish. Limit fiber and avoid raw or cooked vegetables, fresh fruits (except bananas), and bran cereals. Limit caffeine and chocolate. Don't use spices or seasonings other than salt. Limit dairy products. Avoid alcohol. During the next 24 hours: Gradually resume a normal diet as you feel better and your symptoms improve. If at any time it starts getting worse again, go back to clear liquids until you feel better. Follow-up care Follow up with your healthcare provider, or as advised. Call your provider if you don't get better within 24 hours or if diarrhea lasts more than a week. Also follow up if you are unable to keep down liquids and get dehydrated. If a stool (diarrhea) sample was taken, call as directed for the results. Call 911 Call 911 if any of these occur: Trouble breathing Chest pain Confused Severe drowsiness or trouble awakening Fainting or loss of consciousness Rapid heart rate Seizure Stiff neck When to seek medical advice Call your healthcare provider right away if any of these occur: Abdominal pain that gets worse Continued vomiting (unable to keep liquids down) Frequent diarrhea (more than 5 times a day) Blood in vomit or stool (black or red color) Dark urine, reduced urine output, or extreme thirst Weakness or dizziness Drowsiness Fever of 100.4 F (38 C) or higher, or as directed by your healthcare provider Dewayne bueno [id number] [employer]. [address] [place] [id number]. All rights reserved. This information is not intended as a substitute for professional medical care. Always follow your healthcare professional's instructions. Follow Up Care 05/17/2023 15:04:51 With:Follow up with primary care provider Address:Unknown When:2-4 days [facility] 05[facility] Emergency department Discharge summary Discharge Instructions Thank you for allowing [facility] to assist you with your healthcare needs. The following is important discharge information regarding your hospital visit. Diagnosis from Today's Visit Diarrhea Gastroenteritis Vomiting What to Do Next Instructions from Your Care Team Discharge Return to Work, School, or Sports (Return to Work, School, or Sports) - Ordered -- May return to: work, please excuse 05/17/23, 05/17/23 15:18:00 EST Post Acute Orders No qualifying data available. You Need to Schedule the Following Appointments Follow Up with Follow up with primary care provider When Within 2-4 days Allergies Concerta oxyCODONE Medications Please ask your primary doctor or pharmacist before taking any other medication not listed, including over the counter drugs, herbal medications, vitamins and or supplements as they may interact with your home medications. What How Much When Why Instructions Last Dose New loperamide (Imodium A-D 2 mg oral tablet) 1 tab(s) by mouth Every 4 hours as needed for for loose stool Duration: 7 Days Printed Prescription New ondansetron (Zofran 4 mg oral tablet) 1 tab(s) by mouth Every 6 hours as needed for Nausea/Vomiting Duration: 5 Days Printed Prescription Unchanged acetaminophen-hydrocodone (Joanna 325- 5 mg oral tablet) 1 tab(s) by mouth Every 4 hours as needed for as needed for pain Neck muscle spasm Duration: 2 Days Unchanged cyclobenzaprine (Flexeril use cyclobenzaprine ) 10 Milligram by mouth Three (3) times a day as needed for Muscle spasm Duration: 5 Days Unchanged ibuprofen (ibuprofen 600 mg oral tablet) 1 tab(s) by mouth Four (4) times a day as needed for as needed for pain Please take this list to your next doctor s visit. Bring all medications you take, including over the counter medications, herbals and other supplements with you to your doctor s visit. Patients and families are reminded to discard old lists and to update any records with all medication providers or retail pharmacies. Education Materials Viral Gastroenteritis (Adult) Gastroenteritis is commonly called the stomach flu, although it has nothing to do with influenza. It is most often caused by a virus that affects the stomach and intestinal tract and usually lasts from 2 to 7 days. Common viruses causing gastroenteritis include norovirus, rotavirus, and hepatitis A. Non-viral causes of gastroenteritis include bacteria, parasites, and toxins. The danger from repeated vomiting or diarrhea is dehydration. This is the loss of too much fluid from the body. When this occurs, body fluids must be replaced. Antibiotics don't help with this illness because it is usually viral. Simple home treatment will be helpful. Symptoms of viral gastroenteritis may include: Watery, loose stools Stomach pain or abdominal cramps Fever and chills Nausea and vomiting Loss of bowel control Headache Home care Gastroenteritis is transmitted by contact with the stool or vomit of an infected person. This can occur from person to person or from contact with a contaminated surface. Follow these guidelines when caring for yourself at home: If symptoms are severe, rest at home for the next 24 hours or until you are feeling better. Wash your hands with soap and water or use alcohol-based medical technicians to prevent the spread of infection. Wash your hands after touching anyone who is sick. Wash your hands or use alcohol-based medical technicians after using the toilet and before meals. Clean the toilet after each use. Remember these tips when preparing food: People with diarrhea should not prepare or serve food to others. When preparing foods, wash your hands before and after. Wash your hands after using cutting boards, countertops, knives, or utensils that have been in contact with raw food. Dry your hands with a single use towel. Keep uncooked meats away from cooked and nomre-et-xza foods. Medicine You may use acetaminophen or NSAID medicines like ibuprofen or naproxen to control fever unless another medicine was given. If you have chronic liver or kidney disease, talk with your healthcare provider before using these medicines. Also talk with your provider if you've had a stomach ulcer or gastrointestinal bleeding. Don't give aspirin to anyone under 18 years of age who is ill with a fever. It may cause severe liver damage. Don't use NSAIDS is you are already taking one for another condition (like arthritis) or are on aspirin (such as for heart disease or after a stroke). If medicine for vomiting or diarrhea are prescribed, take these only as directed. Nausea and diarrhea medicines are generally OK unless you have bleeding, fever, or severe abdominal pain. Diet Follow these guidelines for food: Water and liquids are important so you don't get dehydrated. Drink a small amount at a time or suck on ice chips if you are vomiting. If you eat, avoid fatty, greasy, spicy, or fried foods. Don't eat dairy if you have diarrhea. This can make diarrhea worse. Avoid tobacco, alcohol, and caffeine which may worsen symptoms. During the first 24 hours (the first full day), follow the diet below: Beverages. Sports drinks, soft drinks without caffeine, davion katiana, mineral water (plain or flavored), decaffeinated tea and coffee. If you are very dehydrated, sports drinks aren't a good choice. They have too much sugar and not enough electrolytes. In this case, commercially available products called oral rehydration solutions, are best. Soups. Eat clear broth, consomm , and bouillon. Desserts. Eat gelatin, ice pops, and fruit juice bars. During the next 24 hours (the second day), you may add the following to the above: Hot cereal, plain toast, bread, rolls, and crackers Plain noodles, rice, mashed potatoes, chicken noodle or rice soup Unsweetened canned fruit (avoid pineapple), bananas Limit fat intake to less than 15 grams per day. Do this by avoiding margarine, butter, oils, mayonnaise, sauces, gravies, fried foods, peanut butter, meat, poultry, and fish. Limit fiber and avoid raw or cooked vegetables, fresh fruits (except bananas), and bran cereals. Limit caffeine and chocolate. Don't use spices or seasonings other than salt. Limit dairy products. Avoid alcohol. During the next 24 hours: Gradually resume a normal diet as you feel better and your symptoms improve. If at any time it starts getting worse again, go back to clear liquids until you feel better. Follow-up care Follow up with your healthcare provider, or as advised. Call your provider if you don't get better within 24 hours or if diarrhea lasts more than a week. Also follow up if you are unable to keep down liquids and get dehydrated. If a stool (diarrhea) sample was taken, call as directed for the results. Call 911 Call 911 if any of these occur: Trouble breathing Chest pain Confused Severe drowsiness or trouble awakening Fainting or loss of consciousness Rapid heart rate Seizure Stiff neck When to seek medical advice Call your healthcare provider right away if any of these occur: Abdominal pain that gets worse Continued vomiting (unable to keep liquids down) Frequent diarrhea (more than 5 times a day) Blood in vomit or stool (black or red color) Dark urine, reduced urine output, or extreme thirst Weakness or dizziness Drowsiness Fever of 100.4 F (38 C) or higher, or as directed by your healthcare provider Dewayne bueno [id number] [employer]. [address] [place] [address]. All rights reserved. This information is not intended as a substitute for professional medical care. Always follow your healthcare professional's instructions. Additional Information VACCINATE! IT SAVES LIVES! Members of the community who have not yet received the COVID-19 vaccine and would like to receive it can visit one of [facility] vaccine clinics. There are many vaccine clinic locations within the [facility]. For locations and available times, please visit [email or web address] It is important to note that some COVID mobile vaccine clinics are held outdoors and may be canceled in rainy or stormy conditions. To learn more about pediatric vaccinations (ages 5-11), we invite you to visit the [facility] webpage. [email or web address] [email or web address] To learn more about the COVID-19 vaccine, we invite you to visit the CDC website for a list of frequently asked questions. https://www.cdc.gov/coronavirus/ 2019-ncov/vaccines/faq.html [facility] Patient Portal Access Instructions: Stay connected with your healthcare team and access your personal medical information anytime with the [facility] Patient Portal. If you would like a full copy of your medical records please contact the [facility] Medical Records Department Sunday through Sunday between 8a.m. and 4:30p.m. Please follow the directions below to access the portal: 1.Access the email account you provided upon registration to the [facility].2.Look for an invitation email from [facility].3.Open the email and access the invitation link: Accept Invitation to [facility]4.Fill in the required prater to create your account. Sign into [email or web address] with your username and password that you created in the above steps to stay up to date. You can then view a summary of results, a summary of your visits, and the ability to download your summaries to your computer or send the information securely to a physician. Remember that your healthcare information is confidential, so carefully consider who you will allow to register on the [facility] Patient Portal for access to your information. You can also access the [facility] Patient Portal on the [email or web address] domenic. Simply click on Health Records under Health Data and then click on the [email or web address] logo. HOW TO SAFELY DISPOSE OF PRESCRIPTION MEDICATIONS Please use one of the following methods to safely dispose of your unused medications. 1.Use a drug disposal kit: the drug disposal pouch allows you to safely discard your old and unused drugs. Ask your nurse to give you one when you are discharged.2.Visit a local take-back location: Many local pharmacies and police departments have programs that collect old and unwanted prescription drugs. Call your local pharmacy or go to http://bit.[employer]/3O9Yd8i to find one close to you.3.Make use of household items: Use cat litter or old coffee grounds to dispose medications if other options are not available. Mix your drugs with these household products, seal them in an airtight container and throw it into the garbage. Call [facility]: [phone] to be sure your drugs can be disposed of in this way. Some medicines may require a different approach.4.Never flush your medications down the toilet. IF YOU HAVE BEEN PRESCRIBED AN OPIOIDS FOR PAIN If you have been prescribed an opioid (such as hydrocodone, oxycodone or morphine), it is critical to understand the possible side effects and risks of opioid pain medications. Even when taken as directed, opioids can have several side effects including: Tolerance, meaning you might need to take more of a medication for the same pain relief. Nausea, vomiting and/or constipation. Sleepiness, dizziness, dry mouth, confusion, depression or itching. Physical dependence, meaning you have withdrawal symptoms when a medication is stopped ? this can develop within a few days. KNOW YOUR RESPONSIBILITIES It is important to know exactly how much and how often to take the opioid pain medications you are prescribed. Never take opioids in higher amounts or more often than prescribed. Do not combine opioids with alcohol or other drugs that cause drowsiness, such as benzodiazepines, also known as benzos, including diazepam and alprazolam, muscle relaxants or sleep aids. Never sell or share prescription opioids. This is illegal. Store opioids in a secure place and out of reach of others (including children, family, friends and visitors). The last page(s) of this document has been signed and retained as a CHART COPY Signatures Patient Education Materials Gastroenteritis, Viral (Adult) Medication Leaflets My discharge plan and instructions have been reviewed and explained to me and IGUS CHRISTIE L understand my current condition and have read and understand these discharge instructions. I have received a written copy of the plan/instructions. If I have questions, I am aware that I should contact my doctor. 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: Date/Time: Relationship to Patient: Witness Name/Signature: Date/Time: [facility] 05-17-2023 Evaluation + Plan note Diagnostic Tests PendingStool Culture 05/17/23 [facility] Evaluation note Diagnosis Onset Date Cystitis acute Acute dehydration acute Intractable nausea and vomiting acute Pyelonephritis of right kidney acute Sepsis acute [facility] Work Phone: Evaluation note* Diagnosis Onset Date Resolution Status Cystitis acute Acute dehydration acute Cystitis acute Intractable nausea and vomiting acute Pyelonephritis of right kidney acute [facility] Work Phone: Evaluation note* Diagnosis Onset Date Resolution Status Acute dehydration resolved Intractable nausea and vomiting resolved [facility] Work Phone: Evaluation note* Diagnosis Onset Date Resolution Status Crushing injury of right index finger, initial encount er acute [facility] Work Phone: Evaluation note* Diagnosis Onset Date Resolution Status Crushing injury of right index finger, initial encount er acute Injury of right middle finger acute [facility] Work Phone: Evaluation note* Diagnosis Onset Date Resolution Status Crushing injury of right index finger, initial encount er acute Gastroenteritis acute Injury of right middle finger acute [facility] Work Phone: Hospital course Narrative No data available for this section [facility] Summary note* JONN Cardoso: PERFORM Event Display: Patient Summary Documents Authored Date: [id number] [facility] Summary Purpose Family History No Family History Records Found Relationship Condition Age at Onset Recorded Date/T treva mother Hyperlipidemia Unknown Gastroesophageal reflux disease Unknown Irritable bowel syndrome Unknown Advance Directives No Advanced Directives Records Found Advance Directive Response Recorded Date/ Time Advance Directives No March 4:44pm Living Will No November 01, 2021 6:39pm Power of Mangle Catcher No November 01 6:39pm Advance Directive Response Recorded Date/ Time Advance Directives No March 4:44pm Living Will No November 02, 2021 12:12am Power of Mangle Catcher No November 02 12:12am Advance Directive Response Recorded Date/ Time Advance Directives No April 1:50pm Living Will No April 19, 2 023 1:50pm Power of Mangle Catcher No April 19, 2023 1:50pm Advance Directive Response Recorded Date/ Time Advance Directives No April 2:14pm Living Will No April 27, 2 023 2:14pm Power of Mangle Catcher No April 27, 2023 2:14pm Chief Complaint and Reason for Visit Chief Complaint CONCERN FOR UTI/KIDN EY INFECTION ACUTE PYELONEPHRITIS & MULTIFOCAL LOBAR NEPHRONIA PYLEN Reason for Visit Cystitis Acute dehydration Intractable nausea and vomiting Pyelonephritis of right kidney Sepsis Chief Complaint CONCERN FOR UTI/KIDN EY INFECTION ACUTE PYELONEPHRITIS & MULTIFOCAL LOBAR NEPHRONIA PYLEN ACUTE PYELONEPHRITIS & MULTIFOCAL LOBAR NEPHRONIA ACUTE PYELONEPHRITIS & MULTIFOCAL LOBAR NEPHRONIA ACUTE PYELONEPHRITIS & MULTIFOCAL LOBAR NEPHRONIA Reason for Visit Cystitis Acute dehydration Cystitis Intractable nausea and vomiting Pyelonephritis of right kidney Chief Complaint CONCERN FOR UTI/KIDN EY INFECTION ACUTE PYELONEPHRITIS & MULTIFOCAL LOBAR NEPHRONIA PYLEN ACUTE PYELONEPHRITIS & MULTIFOCAL LOBAR NEPHRONIA ACUTE PYELONEPHRITIS & MULTIFOCAL LOBAR NEPHRONIA ACUTE PYELONEPHRITIS & MULTIFOCAL LOBAR NEPHRONIA FATIGUE, ANXIETY, TACHYCARDIA, DEPRESSION Reason for Visit Acute dehydration Intractable nausea and vomiting Chief Complaint RIGHT FINGER Crushing injury right index finger Reason for Visit Crushing injury of r ight index finger, initial encounter Chief Complaint RIGHT FINGER Crushing injury right index finger COUGH, UPSET STOMACH, RT HAND MIDDLE FINGER INJURY RIGHT HAND- middle finger pain Reason for Visit Crushing injury of r ight index finger, initial encounter Injury of right middle finger Chief Complaint RIGHT FINGER Crushing injury right index finger COUGH, UPSET STOMACH, RT HAND MIDDLE FINGER INJURY RIGHT HAND- middle finger pain Reason for Visit Crushing injury of r ight index finger, initial encounter Gastroenteritis Injury of right middle finger Additional Source Comments INFORMATION SOURCE (unrecogn ized section and content) DATE CREATED AUTHOR 01/05/2018 [facility] DATE CREATED AUTHOR AUTHOR'S ORGANIZ ATION 05/05/2023 [facility] DATE CREATED AUTHOR AUTHOR'S ORGANIZ ATION 05/23/2023 [facility] ([place]) DATE CREATED AUTHOR AUTHOR'S ORGANIZ ATION 07/18/2024 [facility] Goals (unrecognized section and content) Goals may be documented in a n alternate sectionGoals may be documented in an alternate sectionGoals may be documented in an alternate sectionGoals may be documented in an alternate section No data available for this section No data available for this section Care Teams (unrecognized sec tion and content) Team Status: Active Member Role Status Dates Dr. Tristen Cortez MD Family Provider Active No Primary Care Physician Primary Care Provider Active Team Status: Inactive Member Role Status Dates No Primary Care Physician Primary Care Provider, Refer ring Provider Active HEAVENLY Davis Attending Provider Active Team Status: Inactive Member Role Status Dates No Primary Care Physician Primary Care Provider Active HEAVENLY Davis Attending Provider, Referring Provi tanya Active Team Status: Active Member Role Status Dates No Primary Care Physician Primary Care Provider Active HEAVENLY Davis Attending Provider, Referring Provi tanya Active FOR RECORDS PERTAINING TO PATIENTS WHO ARE OR HAVE BEEN ENROLLED IN A CHEMICAL DEPENDENCY/SUBSTANCEABUSE PROGRAM, SOME INFORMATION MAY BE OMITTED. This clinical summary was aggregated from multiple sources. Caution should be exercised in using it in the provision of clinical care. This summary normalizes information from multiple sources, and as a consequence, information in this document may materially change the coding, format and clinical context of patient data. In addition, data may be omitted in some cases. CLINICAL DECISIONS SHOULD BE BASED ON THE PRIMARY CLINICAL RECORDS. [facility] [facility]. provides no warranty or guarantee of the accuracy or completeness of information in this document.
[2025-02-25 22:05] VITALS: BP 118/70; PULSE 71; RESP 18; TEMP 36.2; O2SAT 100
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
== END 2025-02-25 22:47 | disposition home or self-care (01) ==
PROVIDERS: Emergency Provider Surgery; Visit Provider Surgery
DX: R45.851 Suicidal ideations (principal); X78.9XXA Intentional self-harm by unspecified sharp object, initial encounter; S50.812A Abrasion of left forearm, initial encounter; Z86.59 Personal history of other mental and behavioral disorders
CPT/HCPCS: 36415; 80048; 80307; 82077; 84703; 85025; 99285